=== PATIENT | female | born 1950 | race Caucasian/White ===

== ENCOUNTER → 2018-02-12 13:56 | Outpatient (CLI) | payer MEDICARE, SELFPAY ==
--- NOTE | 2018-02-27 08:06 | PM.CARDMON.1 ---
Cook Chief Report Referral & Results Date Patient Seen: 02/12/18 Requesting provider: Johanna Melendez Indication: Palpitations Duration of monitoring (days): 7 Diary information: There were 0 patient diary entries There are 9 patient triggered events associated with sinus rhythm, PACs, and SVT Data: Minimum heart rate identified was 50 beats per minute at 06:11 on 02/18/2018 Back some sinus heart rate was 151 beats per minute at 10:55 on 02/16/2018 Maximum overall heart rate was 200 beats per minute at 18:11 on 02/17/2018 during a 28 min run of SVT Less than 1% of identified beats are either ventricular or supraventricular ectopic in origin Patient had 10 runs of SVT including 1 that lasted nearly 28-,1/2 minutes Impression: This monitor seems to show episodes of SVT as a likely source of patient's sense of palpitations Clinical correlation and treatment suggested
--- NOTE | 2018-02-27 08:10 | P.HOLT.S_ITS ---
Salary And Wage Administrator Report Referral & Results Date Patient Seen: 02/12/18 Requesting provider: Johanna Melendez Indication: Palpitations Duration of monitoring (days): 7 Diary information: There were 0 patient diary entries There are 9 patient triggered events associated with sinus rhythm, PACs, and SVT Data: Minimum heart rate identified was 50 beats per minute at 06:11 on 2017 Back some sinus heart rate was 151 beats per minute at 10:55 on 02/16/2018 Maximum overall heart rate was 200 beats per minute at 18:11 on 02/17/2018 during a 28 min run of SVT Less than 1% of identified beats are either ventricular or supraventricular ectopic in origin Patient had 10 runs of SVT including 1 that lasted nearly 28-,1/2 minutes Impression: This monitor seems to show episodes of SVT as a likely source of patient's sense of palpitations Clinical correlation and treatment suggested
== END ==
PROVIDERS: Visit Provider Nurse Practitioner Family
DX: R00.2 Palpitations (principal)
CPT/HCPCS: 0296T

== ENCOUNTER → 2018-02-21 08:33 | Outpatient (CLI) | payer MEDICARE, SELFPAY ==
[2018-02-21 08:56] LABS: Bacteria Urine None Seen; RBC Urine None Seen (0-5/HPF); WBC Urine None Seen (0-5/HPF)
[2018-02-21 09:50] LABS: Appearance Urine UA CLEAR; Bilirubin Urine UA NEGATIVE (NEGATIVE); Color Urine UA YELLOW; Glucose Urine UA NEGATIVE (Normal); Ketones Urine UA NEGATIVE (NEGATIVE); Leukocyte Esterase Urine UA NEGATIVE (NEGATIVE); Nitrite Urine UA Negative (Negative); Occult Blood Urine UA NEGATIVE (Negative); Protein Urine UA NEGATIVE (Negative); Urobilinogen Urine UA 0.2 E.U./dL (0.2); pH Urine UA 6.5 (4.5-8.0)
[2018-02-21 10:01] LABS: Culture Indicated Urine Cult Not Indicated; Urine Comments Microscopic Normal
[2018-02-21 10:03] LABS: Hematocrit 37.9 % (36-46); Mean Corpuscular HGB Conc 34.3 % (30-36); Mean Corpuscular Hemoglobin 33.3 PG (26-34); Platelet Count 174 X10^3/uL (150-400); Red Blood Cell Count 3.91 X10^6/uL (4.0-5.2); Red Cell Distribution Width 12.1 % (11.6-14.8); White Blood Cell Count 3.2 X10^3/uL (4.5-11.0)
[2018-02-21 10:20] LABS: Alanine Aminotransferase 40 IU/L (9-52); Albumin Globulin Ratio 1.4 (1.0-2.8); Alkaline Phosphatase 64 U/L (38-126); Aspartate Aminotransferase 44 IU/L (14-36); Bilirubin Total 0.6 mg/dL (0.2-1.3); Blood Urea Nitrogen 20 mg/dL (7-17); Calcium 9.5 mg/dL (8.4-10.2); Carbon Dioxide 35 mmol/L (22-32); Chloride 102 mmol/L (98-107); Cholesterol 212 mg/dL (140-199); Estimated Glomerular Filt Rate 55.3 mL/min (>60); Globulin 2.8 g/dL (1.7-4.1); Glucose 88 mg/dL (80-110); HDL Cholesterol 72 mg/dL (40-60); HEMOLYSIS < 15 (0-50); LDL Cholesterol Calculated 125 mg/dL (<100); Sodium 142 mmol/L (137-145); Total Protein 6.8 g/dL (6.3-8.2); Triglycerides 73 mg/dL (35-150)
[2018-02-21 10:27] LABS: Hemoglobin A1C% w Est Avg Glu 5.2 % (4.0-6.0)
[2018-02-21 10:29] LABS: Free T4, Direct Thyroxine 1.05 ng/dL (0.78-2.19)
[2018-02-21 10:39] LABS: C-Reactive Protein Quant < 0.5 mg/dL (<1.0)
[2018-02-21 10:55] LABS: Erythrocyte Sedimentation Rate 6 MM/HR (0-20)
[2018-02-21 11:51] LABS: Neutrophils Absolute Manual 1664 /uL (3000-5900); Nucleated Red Blood Cells 1 #/Diff; Total Cells Counted 100
[2018-02-21 12:05] LABS: Anisocytosis 1+; Poikilocytosis 1+
== END ==
PROVIDERS: PCP Nurse Practitioner Family; Visit Provider Nurse Practitioner Family
DX: R52 Pain, unspecified (principal); R53.83 Other fatigue; M85.80 Other specified disorders of bone density and structure, unspecified site; Q24.9 Congenital malformation of heart, unspecified; Z00.00 Encounter for general adult medical examination without abnormal findings; Z79.899 Other long term (current) drug therapy
CPT/HCPCS: 36415; 80053; 80061; 81001; 83036; 84439; 84443; 85025; 85651; 86140

== ENCOUNTER → 2018-03-06 13:23 | Outpatient (CLI) | payer MEDICARE, SELFPAY ==
[2018-03-10 18:11] LABS: Fecal Immunochemical Test NOT DETECTED
== END ==
PROVIDERS: PCP Nurse Practitioner Family; Visit Provider Nurse Practitioner Family
DX: R52 Pain, unspecified (principal); R53.83 Other fatigue
CPT/HCPCS: 82274

== ENCOUNTER → 2018-03-21 10:02 | Outpatient (CLI) | payer MEDICARE, SELFPAY ==
[2018-03-21 10:31] LABS: Hematocrit 38.9 % (36-46); Hemoglobin 13.2 g/dL (12.0-16.0); Mean Corpuscular HGB Conc 33.9 % (30-36); Mean Corpuscular Hemoglobin 32.7 PG (26-34); Mean Corpuscular Volume 96.3 fL (80-100); Platelet Count 172 X10^3/uL (150-400); Red Blood Cell Count 4.04 X10^6/uL (4.0-5.2); Red Cell Distribution Width 11.9 % (11.6-14.8); White Blood Cell Count 4.2 X10^3/uL (4.5-11.0)
[2018-03-21 11:17] LABS: Cholesterol 140 mg/dL (140-199); HDL Cholesterol 80 mg/dL (40-60); LDL Cholesterol Calculated 46 mg/dL (<100); Triglycerides 70 mg/dL (35-150)
[2018-03-21 12:07] LABS: Neutrophils Absolute Manual 2268 /uL (3000-5900); RBC Morphology Normal Morphology; Total Cells Counted 100
== END ==
PROVIDERS: PCP Nurse Practitioner Family; Visit Provider Nurse Practitioner Family
DX: E78.5 Hyperlipidemia, unspecified (principal); M85.80 Other specified disorders of bone density and structure, unspecified site
CPT/HCPCS: 36415; 80061; 85025

== ENCOUNTER → 2018-04-01 13:28 | Outpatient (CLI) | payer MEDICARE, SELFPAY ==
--- NOTE | 2018-04-01 13:38 | DI.RAD.S_ITS ---
PROCEDURE: XR HIP W PEL IF DONE LT MIN 4V INDICATIONS: Bilateral hip pain TECHNIQUE: AP pelvis with lateral view(s) of the right and left hip(s), 3 views total. COMPARISON: None. FINDINGS: Bones: No fractures or dislocations. There is moderately severe symmetric hip joint osteoarthritis with joint space thinning Pelvic ring appears intact. No suspicious bony lesions. Suspect old fracture at the symphysis pubis on the right Soft tissues: The visualized bowel gas pattern is normal. No suspicious soft tissue calcifications. IMPRESSION: Moderately severe symmetric hip joint osteoarthritis bilaterally, old trauma to the symphysis pubis on the right. Dictated by: Alberto Gerber M.D. on 04/01/2018 at 15:26 Approved by: Alberto Gerber M.D. on 04/01/2018 at 15:27
--- NOTE | 2018-04-01 13:38 | DI.RAD.S_ITS ---
PROCEDURE: XR LUMBAR SPINE 2-3V INDICATIONS: Low back pain TECHNIQUE: 3 views of the lumbar spine were acquired. COMPARISON: [facility], , PELVIS W UNILATERAL HIP RIGHT, 01/14/2014, 12:45. [facility], , DEXA AXIAL SKELETON, 04/21/2017, 15:34. FINDINGS: Bones: 5 xtg-yde-qenlusa vertebrae are present. There is levoscoliotic bony alignment centered at L3. There is a definite L3 anterior wedge vertebral body compression fracture or fracture with 40.1% height reduction at the middle third of the vertebral body of L3 when compared to the level immediately below. No suspicious bony lesions. Soft tissues: Overlying bowel gas pattern is normal. No suspicious soft tissue calcifications. IMPRESSION: Moderate convex leftward scoliosis centered at L3, and the L3 vertebral body shows a 40.1% compression fracture at its middle third, when compared to the normal-appearing level immediately below. MR scanning could be utilized to assess chronicity of this compression fracture. By appearance it may be acute or subacute. Dictated by: Alberto Gerber M.D. on 04/01/2018 at 15:22 Approved by: Alberto Gerber M.D. on 04/01/2018 at 15:26
== END ==
PROVIDERS: PCP Nurse Practitioner Family; Visit Provider Registered Nurse
DX: M54.5 Low back pain (principal); M25.551 Pain in right hip; M25.552 Pain in left hip; M48.56XA Collapsed vertebra, not elsewhere classified, lumbar region, initial encounter for fracture; M16.0 Bilateral primary osteoarthritis of hip; M41.86 Other forms of scoliosis, lumbar region
CPT/HCPCS: 72100; 73522

== ENCOUNTER → 2018-04-07 10:36 | Outpatient (CLI) | payer MEDICARE, SELFPAY ==
--- NOTE | 2018-04-07 | DI.US.S_ITS ---
PROCEDURE: US RENAL COMPLETE INDICATIONS: CHRONIC KIDNEY DISEASE STAGE 3 TECHNIQUE: Real-time scanning was performed of the kidneys and bladder, with image documentation. COMPARISON: None. FINDINGS: Kidneys: Kidneys are normal in size. Right kidney measures 10.0 cm long; left kidney measures 10.1 cm long. Right renal cortical thickness is 1.3 cm; left renal cortical thickness is 1.7 cm. Renal cortical echotexture is normal. No hydronephrosis. 1.7 cm nonobstructing inferior pole left renal calcification. Bladder: Pre-void bladder volume is 309 mL. Post-void residual is 0 mL. Pre-void images demonstrate no intraluminal masses or stones. On pre-void images, bilateral ureteral jets are noted with color Doppler interrogation. (Of note, ureteral jets may not be detectable in up to 25% of cases due to insufficient differences in specific gravity between ureteral and bladder urine). Miscellaneous: No free pelvic fluid. IMPRESSION: 1.7 cm nonobstructing left renal calcifications otherwise normal appearance of the kidneys. Dictated by: Hadley SPARROW Interpreted: Marely Shell MD on 04/07/2018 at 13:38 Approved by: Marely Shell M.D. on 04/07/2018 at 15:37
== END ==
PROVIDERS: Visit Provider Student in an Organized Health Care Education/Training Program
DX: N18.3 Chronic kidney disease, stage 3 (moderate) (principal); N20.0 Calculus of kidney
CPT/HCPCS: 76770

== ENCOUNTER → 2018-04-13 10:12 | Outpatient (CLI) | payer MEDICARE, SELFPAY | PROVIDERS: Visit Provider Registered Nurse | DX: M85.88 Other specified disorders of bone density and structure, other site (principal); Z78.0 Asymptomatic menopausal state; Z82.62 Family history of osteoporosis; Z85.42 Personal history of malignant neoplasm of other parts of uterus; Z87.891 Personal history of nicotine dependence | CPT/HCPCS: 77080 ==

== ENCOUNTER 2018-05-05 07:27 | Day surgery (SDC) | payer MEDICARE, SELFPAY ==
[2018-05-05 07:43] VITALS: BMI 24.2
[2018-05-05 07:58] VITALS: BP 154/85; PULSE 79; RESP 15; TEMP 36.4; O2SAT 98
[2018-05-05] MEDS: SODIUM CHLORIDE 0.9% 1,000 ML 21 ML IV (08:28)
--- NOTE | 2018-05-05 09:02 | PM.HP.1 ---
History of Present Illness Date Patient Seen: 05/05/18 Time Patient Seen: 09:02 Chief complaint: [id number] Narrative: The patient is woman whose last colonoscopy was about 5-10 years ago. She thinks it is closer to 10. She is here for screening exam. She has had polyps before. This is her 3rd colonoscopy. Patient History Medical History Paroxysmal SVT (supraventricular tachycardia) (Acute) Osteopenia (Chronic) Cervical cancer (Resolved 1984) Colon polyps (Resolved 2009) DVT (deep venous thrombosis) (Resolved) Elbow fracture, right (Resolved) Fracture of left pelvis (Resolved 01/24/12) Fracture of right pubis (Resolved 01/12/14) Surgical History History of colonoscopy (Resolved 2011) History of colonoscopy with polypectomy (Resolved 2009) History of elbow surgery (Resolved) Status post hysterectomy (Resolved 1984) Family & Social History Family History: Reviewed 05/05/18 by Carlos Caba MD Social History: household members spouse Tobacco & Substance use: Smoking Status Former smoker Meds Home Medications Medication Instructions Recorded Confirmed Type CA PANTOTHENATE/FOLIC ACID/VIT 1 tab PO Q DAY #0 08/15/11 05/05/18 History (MULTIVITAMIN) [CITRICAL] 2 tab PO BID #0 01/24/12 05/05/18 History conjugated estrogens 0.3 mg tablet 0.3 mg PO QDAY #90 tab 02/03/18 05/05/18 Rx rosuvastatin 10 mg tablet 10 mg PO DAILY #30 tab 02/25/18 05/05/18 Rx alendronate 70 mg tablet 70 mg PO QWEEK #60 tab 04/06/18 05/05/18 Rx metoprolol succinate ER 25 mg 25 mg PO DAILY #30 tab 04/29/18 05/05/18 Rx tablet,extended release 24 hr Allergies Allergy/AdvReac Type Severity Reaction Status Date / Time No Known Drug Allergies Allergy Verified 05/05/18 07:40 Review of Systems Review of Systems All systems reviewed & are unremarkable except as noted in HPI and below Cardiovascular Comments: History SVT. Patient on beta-alexi which she took. Genitourinary Comments: Stress incontinence Musculoskeletal Comments: History arthritis Exam Vital Signs (past 8 hours): - 05/05/18 07:58 Temperature 97.5 F L Pulse Rate 79 Respiratory Rate 15 Blood Pressure 154/85 H Pulse Oximetry 98 Oxygen Delivery Method Room Air Narrative Exam Narrative: No apparent distress. Lungs are clear to auscultation no rales or rhonchi heart regular rate and rhythm no murmur or gallop abdomen is scaphoid soft nontender without mass. Patient is alert and oriented x3. Assessment & Plan Plan: Assessment/Plan Narrative: Patient for screening colonoscopy. Given her history of polyps she is due for 1 at this time. I have discussed the procedure and the rationale with the patient including risks of bleeding, perforation which would necessitate a major operation, failure to find remove all lesions and the potential to tattoo. They appeared to understand and wished to proceed.
--- NOTE | 2018-05-05 09:06 | PM.PREOP ---
Pre-operative Note Interval Note Pre-op Check: Yes History & Physical exam performed today by Physician Changes: No ASA Class (for procedural sedation): II
[2018-05-05] MEDS: MIDAZOLAM 5 MG/5 ML VIAL IV (09:26)
[2018-05-05] MEDS: fentaNYL 250 MCG/5 ML INJ IV (09:27)
--- NOTE | 2018-05-05 09:36 | PM.OP.ENDO ---
Operative Date/Time/Diagnoses Date of procedure: 05/05/18 Time of procedure: 09:36 Pre-op diagnosis: Screening examination. Last exam 5-10 years ago. Personal history of polyps. Post-op diagnosis: same (Occasional sigmoid diverticulosis. Otherwise normal exam.) Procedure & Clinicians Study performed: Colonoscopy Same procedure as scheduled: Yes Indications: Screening Surgeon: Carlos Caba Procedure Notes SCOAP/Timeout: Performed Procedure in detail: The patient was placed in the left lateral decubitus position and underwent IV sedation directed by the surgeon consisting of fentanyl and Versed. Digital exam was unremarkable. There were no masses. The scope was inserted and advanced through the rectum into the sigmoid, descending, transverse, and ascending colon. We did have to reposition the patient in order to make our way all the way to the cecum. The cecum was reached identified by the ileocecal valve and the appendiceal opening. The scope was gradually brought out. No Polyps were found. The scope ultimately was retroflexed in the rectum. The appearance was[normal]. The scope was removed and the patient tolerated the procedure well Scope withdrawal time: 7.5 min Sedation minutes: 27 Findings: diverticulosis (Occasional sigmoid) Specimen(s): none sent Complications: none Recommendations: Colonscopy in 5 years (Due to personal history of polyps) Follow up: as needed Disposition: PACU
[2018-05-05 09:39] VITALS: BP 135/66; PULSE 78; RESP 12; TEMP 36.3; O2SAT 96
[2018-05-05 09:44] VITALS: BP 116/67; PULSE 77; RESP 12; O2SAT 96
[2018-05-05 09:49] VITALS: BP 118/59; PULSE 88; RESP 14; O2SAT 97
[2018-05-05 10:12] VITALS: BP 129/66; PULSE 85; RESP 16; TEMP 36.6; O2SAT 97
== END 2018-05-05 10:16 | disposition home or self-care (01) ==
PROVIDERS: Visit Provider Specialist
PROC: 0DJD8ZZ Inspection of Lower Intestinal Tract, Via Natural or Artificial Opening Endoscopic (ICD-10-PCS; CPT 45378; principal; 2018-05-05 08:45)
DX: Z86.010 Personal history of colon polyps (principal); Z86.718 Personal history of other venous thrombosis and embolism; Z87.891 Personal history of nicotine dependence; K57.30 Diverticulosis of large intestine without perforation or abscess without bleeding
CPT/HCPCS: G0105; 99152; 99153; J2250; J3010

== ENCOUNTER → 2018-05-07 11:26 | Outpatient (CLI) | payer MEDICARE, SELFPAY ==
[2018-05-07 13:10] LABS: Hematocrit 37.6 % (36-46); Hemoglobin 12.9 g/dL (12.0-16.0)
[2018-05-07 13:54] LABS: HEMOLYSIS < 15 (0-50); Iron 126 ug/dL (37-170)
[2018-05-07 14:03] LABS: BUN Creatinine Ratio 27.8 (6-22); Blood Urea Nitrogen 25 mg/dL (7-17); Calcium 9.9 mg/dL (8.4-10.2); Carbon Dioxide 29 mmol/L (22-32); Chloride 100 mmol/L (98-107); Estimated Glomerular Filt Rate > 60.0 mL/min (>60); Glucose 88 mg/dL (80-110); HEMOLYSIS < 15 (0-50); Phosphorous 4.6 mg/dL (2.8-4.1); Potassium 4.6 mmol/L (3.4-5.1); Sodium 140 mmol/L (137-145)
[2018-05-07 14:04] LABS: Percent Iron Saturation 46 % (15-50); Total Iron Binding Capacity 276 ug/dL (265-497); Transferrin 233 mg/dL (206-381)
[2018-05-07 15:26] LABS: Protein (Total) Urine Random 10 mg/dL (0-12); Protein Creatinine Ratio Urine 0.25 GRAM/24H
[2018-05-09 14:37] LABS: Parathyroid Hormone Int 25 pg/mL (14-64)
== END ==
PROVIDERS: Visit Provider Student in an Organized Health Care Education/Training Program
DX: N05.9 Unspecified nephritic syndrome with unspecified morphologic changes (principal); D50.0 Iron deficiency anemia secondary to blood loss (chronic); D64.9 Anemia, unspecified; R80.9 Proteinuria, unspecified; E83.30 Disorder of phosphorus metabolism, unspecified; N25.81 Secondary hyperparathyroidism of renal origin; I10 Essential (primary) hypertension
CPT/HCPCS: 36415; 80048; 82570; 82728; 83540; 83550; 83970; 84100; 84156; 85014; 85018

== ENCOUNTER → 2018-08-28 11:54 | Outpatient (CLI) | payer MEDICARE, SELFPAY ==
[2018-08-28 12:34] LABS: Add Manual Diff / Slide Review NO; Basophils Absolute Auto 0 /uL (0-100); Basophils Percent Auto 0.5 % (0-2); Eosinophils Absolute Auto 0 /uL (0-450); Hematocrit 37.7 % (36-46); Hemoglobin 12.9 g/dL (12.0-16.0); Lymphocytes Absolute Auto 1300 /uL (1100-4500); Lymphocytes Percent Auto 27.6 % (25-40); Mean Corpuscular HGB Conc 34.2 % (30-36); Mean Corpuscular Hemoglobin 33.3 PG (26-34); Mean Corpuscular Volume 97.3 fL (80-100); Monocytes Absolute Auto 600 /uL (0-900); Monocytes Percent Auto 12.2 % (3-14); Neutrophils Absolute Auto 2800 /uL (1500-7000); Neutrophils Percent Auto 58.7 % (50-75); Platelet Count 184 X10^3/uL (150-400); Red Blood Cell Count 3.87 X10^6/uL (4.0-5.2); White Blood Cell Count 4.7 X10^3/uL (4.5-11.0)
[2018-08-28 12:43] LABS: Alanine Aminotransferase 45 IU/L (9-52); Albumin 4.2 g/dL (3.5-5.0); Albumin Globulin Ratio 1.4 (1.0-2.8); Alkaline Phosphatase 64 U/L (38-126); Aspartate Aminotransferase 42 IU/L (14-36); BUN Creatinine Ratio 21.1 (6-22); Bilirubin Total 0.5 mg/dL (0.2-1.3); Blood Urea Nitrogen 19 mg/dL (7-17); Calcium 10.1 mg/dL (8.4-10.2); Carbon Dioxide 30 mmol/L (22-32); Chloride 99 mmol/L (98-107); Estimated Glomerular Filt Rate > 60.0 mL/min (>60); Globulin 2.9 g/dL (1.7-4.1); Glucose 83 mg/dL (80-110); HEMOLYSIS < 15 (0-50); Potassium 4.1 mmol/L (3.4-5.1); Sodium 137 mmol/L (137-145); Total Protein 7.1 g/dL (6.3-8.2)
== END ==
PROVIDERS: Visit Provider Registered Nurse
DX: R19.7 Diarrhea, unspecified (principal)
CPT/HCPCS: 36415; 80053; 85025; 87045; 87177; 87899

== ENCOUNTER → 2019-04-22 16:42 | Outpatient (CLI) | payer MEDICARE, SELFPAY ==
--- NOTE | 2019-04-22 | DI.MG.S_ITS ---
BILATERAL DIGITAL SCREENING MAMMOGRAM 3D/2D WITH CAD: 04/22/2019 CLINICAL: Routine screening. Comparison is made to exams dated: 04/21/2017 mammogram, 10/27/2014 mammogram, and 09/27/2013 mammogram - [facility]. There are scattered fibroglandular elements in both breasts. Current study was also evaluated with a Computer Aided Detection (CAD) system. No significant masses, calcifications, or other findings are seen in either breast. There has been no significant interval change. IMPRESSION: NEGATIVE There is no mammographic evidence of malignancy. A 1 year screening mammogram is recommended. This exam was interpreted at Station ID: [id number]. NOTE: For mammograms, a report in lay terms will be sent to the patient. Approximately 15% of breast malignancies will not be visualized mammographically. In the management of a palpable breast mass, a negative mammogram must not discourage biopsy of a clinically suspicious lesion. Electronically Signed By: Chad luis/nallely:04/22/2019 20:32:09 letter sent: Normal Exam ACR BI-RADS Category 1: Negative 3341F
== END ==
PROVIDERS: Visit Provider Student in an Organized Health Care Education/Training Program
DX: Z12.31 Encounter for screening mammogram for malignant neoplasm of breast (principal)
CPT/HCPCS: 77063; 77067

== ENCOUNTER → 2019-05-04 07:23 | Outpatient (CLI) | payer MEDICARE, SELFPAY ==
[2019-05-04 09:06] LABS: Albumin 4.7 g/dL (3.5-5.0); BUN Creatinine Ratio 18.9 (6-22); Blood Urea Nitrogen 17 mg/dL (7-17); Carbon Dioxide 32 mmol/L (22-32); Chloride 99 mmol/L (98-107); Estimated Glomerular Filt Rate > 60.0 mL/min (>60); Glucose 90 mg/dL (80-110); HEMOLYSIS < 15 (0-50); Sodium 140 mmol/L (137-145)
[2019-05-04 09:07] LABS: Creatinine Urine Random 35.6 mg/dL; Total Volume Urine 2800 mL
[2019-05-04 09:18] LABS: Vitamin D 25 Hydroxy (D3) 57.7 ng/mL (30.0-100.0)
[2019-05-04 10:10] LABS: Calcium 24 Hour Urine 263 mg/day (100-300); Calcium Urine Random 9.4; Collection Time Urine 24 Hours; Total Volume Urine 2800 mL
[2019-05-04 10:17] LABS: Patient Height Urine 67 inches; Patient Weight Urine 142 lbs
[2019-05-04 10:20] LABS: Collection Time Urine 24 Hours; Creat Clearance, Corrected 76.4 mL/MIN; Creatinine Clearance Urine 76.9 mL/MIN
[2019-05-06 14:57] LABS: Parathyroid Hormone Int 35 pg/mL (14-64)
[2019-05-12 16:56] LABS: N-Telopeptide Serum < 3.4 nM BCE (6.2-19.0)
== END ==
PROVIDERS: Visit Provider Internal Medicine Endocrinology, Diabetes & Metabolism
DX: M81.0 Age-related osteoporosis without current pathological fracture (principal); S32.000S Wedge compression fracture of unspecified lumbar vertebra, sequela
CPT/HCPCS: 36415; 80048; 82040; 82306; 82340; 82523; 82575; 83970; 84443

== ENCOUNTER → 2019-07-26 08:59 | Outpatient (CLI) | payer MEDICARE, SELFPAY ==
[2019-07-26 10:27] LABS: Hematocrit 37.9 % (36-46); Hemoglobin 12.8 g/dL (12.0-16.0)
[2019-07-26 10:39] LABS: BUN Creatinine Ratio 15.6 (6-22); Blood Urea Nitrogen 14 mg/dL (7-17); Calcium 10.3 mg/dL (8.4-10.2); Carbon Dioxide 33 mmol/L (22-32); Chloride 96 mmol/L (98-107); Estimated Glomerular Filt Rate > 60.0 mL/min (>60); Glucose 82 mg/dL (80-110); HEMOLYSIS < 15 (0-50); Potassium 4.7 mmol/L (3.4-5.1); Sodium 136 mmol/L (137-145)
[2019-07-26 10:56] LABS: Creatinine Urine Random 36.6 mg/dL; Protein (Total) Urine Random 14 mg/dL (0-12); Protein Creatinine Ratio Urine 0.38 GRAM/24H
[2019-07-26 10:57] LABS: HEMOLYSIS < 15 (0-50); Iron 101 ug/dL (37-170)
[2019-07-26 11:00] LABS: Ferritin 64.8 ng/mL (11.1-264)
[2019-07-26 11:07] LABS: Percent Iron Saturation 35 % (15-50); Total Iron Binding Capacity 289 ug/dL (265-497); Transferrin 237 mg/dL (206-381)
[2019-07-29 15:22] LABS: Parathyroid Hormone Int 13 pg/mL (14-64)
== END ==
PROVIDERS: PCP Student in an Organized Health Care Education/Training Program; Visit Provider Student in an Organized Health Care Education/Training Program
DX: D84.9 Immunodeficiency, unspecified (principal); D50.0 Iron deficiency anemia secondary to blood loss (chronic); N25.81 Secondary hyperparathyroidism of renal origin; R80.9 Proteinuria, unspecified
CPT/HCPCS: 36415; 80048; 82570; 82728; 83540; 83550; 83970; 84156; 85014; 85018

== ENCOUNTER → 2019-09-02 19:02 | Outpatient (CLI) | payer MEDICARE, SELFPAY ==
--- NOTE | 2019-09-02 19:04 | DI.MRI.S_ITS ---
PROCEDURE: MR KNEE RT WO CON INDICATIONS: INTERNAL DERAIGNMENT OF RIGHT KNEE TECHNIQUE: Noncontrast sagittal PD fast spin echo and T2 fast spin echo with fat saturation, sagittal 3-D FLASH with fat saturation; coronal T1 spin echo and PD fast spin echo with fat saturation, and axial PD fast spin echo with fat saturation through the knee. COMPARISON: None. FINDINGS: Image quality: Excellent. Menisci: There is peripheral displacement of medial meniscus bowing medial collateral ligament. Complex tear is seen involving body and posterior horn of medial meniscus extending to both superior and inferior articulating surfaces. There is no evidence of focal lateral meniscal tear. The meniscal root ligaments appear intact. Cruciate ligaments: The anterior and posterior cruciate ligaments appear intact. Medial structures: The medial collateral ligament appears intact. The posterior oblique ligament, semimembranosus tendon insertions, oblique popliteal ligament, and meniscocapsular junction appear intact. Visualized portions of the pes anserinus tendons appear normal. No abnormal bursal fluid. Lateral structures: The lateral collateral ligament, long and short heads of the biceps femoris tendon appear intact. The popliteus tendon appears normal; the popliteofibular ligament appears intact. The posterosuperior and anteroinferior popliteomeniscal fascicles appear intact. The arcuate and fabellofibular ligaments appear intact, on either side of the lateral inferior geniculate artery. Iliotibial band appears normal. Anterior structures: The quadriceps and patellar tendons appear intact. Patellar alignment is normal. No femoral trochlear dysplasia or ventral trochlear prominence. No edema in the infrapatellar fat pad. Bones and cartilage: There is significant chondromalacia involving medial femoral tibial compartment with marrow edema in the adjacent weightbearing portion of medial femoral condyle and suggestion of osteochondral lesion in medial femoral condyle measures 5 x 3 mm in size. Mild chondromalacia in the lateral femoral-tibial compartment is seen. Low-grade chondromalacia in lateral facet of patella cartilage is also noted. No other area of abnormal marrow signal. Joint space: There is moderate amount of joint fluid. 3.2 x 2 x 5.1 cm popliteal cyst is seen. Normal appearing synovial plicae are incidentally noted. IMPRESSION: 1. Complex tear involving body and posterior horn of medial meniscus extending to both superior and inferior articulating surfaces. No evidence of focal lateral meniscal tear. 2. Cruciate ligaments are intact. 3. Moderate osteoarthritic changes in medial femoral-tibial compartment with near-complete loss of articulating cartilage and underlying 5 x 3 mm osteochondral lesion with extensive surrounding edema. 4. Moderate amount of joint fluid and popliteal cyst as above. No gross intra-articular loose body. Dictated by: Dwayne Benton M.D. on 09/03/2019 at 8:49 Approved by: Dwayne Benton M.D. on 09/03/2019 at 8:55
--- NOTE | 2019-09-02 19:04 | DI.MRI.S_ITS ---
PROCEDURE: MR KNEE LT WO CON INDICATIONS: INTERNAL DERAINGMENT OF LEFT KNEE TECHNIQUE: Noncontrast sagittal PD fast spin echo and T2 fast spin echo with fat saturation, sagittal 3-D FLASH with fat saturation; coronal T1 spin echo and PD fast spin echo with fat saturation, and axial PD fast spin echo with fat saturation through the knee. COMPARISON: [facility], MR, MR KNEE RT WO CON, 09/02/2019, 19:36. FINDINGS: Image quality: Excellent. Menisci: Oblique tear involving posterior horn of medial meniscus is seen extending to inferior articulating surface. There is a no definite lateral meniscal tear. The meniscal root ligaments appear intact. Cruciate ligaments: The anterior and posterior cruciate ligaments appear intact. Medial structures: Mild MCL sprain is seen.. The posterior oblique ligament, semimembranosus tendon insertions, oblique popliteal ligament, and meniscocapsular junction appear intact. Visualized portions of the pes anserinus tendons appear normal. No abnormal bursal fluid. Lateral structures: The lateral collateral ligament, long and short heads of the biceps femoris tendon appear intact. The popliteus tendon appears normal; the popliteofibular ligament appears intact. The posterosuperior and anteroinferior popliteomeniscal fascicles appear intact. The arcuate and fabellofibular ligaments appear intact, on either side of the lateral inferior geniculate artery. Iliotibial band appears normal. Anterior structures: The quadriceps and patellar tendons appear intact. Patellar alignment is normal. No femoral trochlear dysplasia or ventral trochlear prominence. No edema in the infrapatellar fat pad. Bones and cartilage: No bone marrow contusions or fractures. Low to moderate grade osteoarthritis and chondromalacia in medial femoral tibial compartment is seen. Articulating cartilage is a lateral femoral tibial compartment and patellofemoral compartment are grossly intact. Joint space: There is small to moderate amount of joint fluid, no gross intra-articular loose body. There is a small popliteal cyst. Normal appearing synovial plicae are incidentally noted. IMPRESSION: 1. Oblique tear involving posterior horn of medial meniscus extending to inferior articulating surface. No definite lateral meniscal tear. 2. Cruciate ligaments are intact. Mild proximal MCL sprain. 3. Mild to moderate osteoarthritis and chondromalacia in medial femoral tibial compartment. Small to moderate amount of joint fluid, no gross loose body. Small popliteal cyst. Dictated by: Dwayne Benton M.D. on 09/03/2019 at 8:56 Approved by: Dwayne Benton M.D. on 09/03/2019 at 9:13
== END ==
PROVIDERS: PCP Student in an Organized Health Care Education/Training Program; Referring Provider Orthopaedic Surgery; Visit Provider Orthopaedic Surgery
DX: S83.231A Complex tear of medial meniscus, current injury, right knee, initial encounter (principal); S83.242A Other tear of medial meniscus, current injury, left knee, initial encounter; S83.412A Sprain of medial collateral ligament of left knee, initial encounter; M71.22 Synovial cyst of popliteal space [Baker], left knee; M71.21 Synovial cyst of popliteal space [Baker], right knee; M17.12 Unilateral primary osteoarthritis, left knee; M94.262 Chondromalacia, left knee; M22.41 Chondromalacia patellae, right knee
CPT/HCPCS: 73721

== ENCOUNTER → 2019-10-28 14:49 | Outpatient (CLI) | payer MEDICARE, SELFPAY ==
[2019-10-28 15:37] LABS: Add Manual Diff / Slide Review NO; Basophils Absolute Auto 0 /uL (0-100); Basophils Percent Auto 0.5 % (0-2); Eosinophils Absolute Auto 0 /uL (0-450); Eosinophils Percent Auto 0.5 % (2-4); Hematocrit 36.8 % (36-46); Hemoglobin 12.4 g/dL (12.0-16.0); Lymphocytes Absolute Auto 800 /uL (1100-4500); Lymphocytes Percent Auto 10.1 % (25-40); Mean Corpuscular HGB Conc 33.6 % (30-36); Mean Corpuscular Volume 92.2 fL (80-100); Monocytes Absolute Auto 900 /uL (0-900); Monocytes Percent Auto 10.9 % (3-14); Neutrophils Absolute Auto 6400 /uL (1500-7000); Platelet Count 634 X10^3/uL (150-400); Red Cell Distribution Width 12.2 % (11.6-14.8); White Blood Cell Count 8.2 X10^3/uL (4.5-11.0)
[2019-10-28 15:47] LABS: INR 1.2 (0.9-1.3); Prothrombin Time 13.3 SECONDS (10.1-12.7)
[2019-10-28 15:52] LABS: Alanine Aminotransferase 25 IU/L (<35); Albumin 3.4 g/dL (3.5-5.0); Alkaline Phosphatase 136 U/L (38-126); Aspartate Aminotransferase 40 IU/L (14-36); BUN Creatinine Ratio 12.5 (6-22); Bilirubin Total 0.5 mg/dL (0.2-1.3); Blood Urea Nitrogen 8 mg/dL (7-17); Calcium 8.2 mg/dL (8.4-10.2); Carbon Dioxide 27 mmol/L (22-32); Chloride 90 mmol/L (98-107); Estimated Glomerular Filt Rate > 60.0 mL/min (>60); Globulin 3.3 g/dL (1.7-4.1); Glucose 107 mg/dL (80-110); HEMOLYSIS < 15 (0-50); Potassium 3.4 mmol/L (3.4-5.1); Sodium 130 mmol/L (137-145); Total Protein 6.7 g/dL (6.3-8.2)
[2019-10-28 16:22] LABS: Cancer Antigen 125 623 U/mL (0-35)
[2019-10-29 05:36] LABS: Cancer (Carbohydrate) Ag 19-9 5 U/mL (0-35)
== END ==
PROVIDERS: PCP Student in an Organized Health Care Education/Training Program; Referring Provider Physician Assistant; Visit Provider Physician Assistant
DX: K66.8 Other specified disorders of peritoneum (principal); R18.8 Other ascites; R97.8 Other abnormal tumor markers
CPT/HCPCS: 36415; 80053; 85025; 85610; 86301; 86304

== ENCOUNTER → 2021-03-22 13:38 | Outpatient (CLI) | payer MEDICARE, SELFPAY ==
--- NOTE | 2021-03-22 | DI.MG.S_ITS ---
BILATERAL DIGITAL SCREENING MAMMOGRAM 3D/2D WITH CAD: 03/22/2021 CLINICAL: Routine screening. Comparison is made to exams dated: 04/22/2019 mammogram, 04/21/2017 mammogram, and 10/27/2014 mammogram - [facility]. There are scattered fibroglandular elements in both breasts. Current study was also evaluated with a Computer Aided Detection (CAD) system. No significant masses, calcifications, or other findings are seen in either breast. There has been no significant interval change. IMPRESSION: NEGATIVE There is no mammographic evidence of malignancy. A 1 year screening mammogram is recommended. This exam was interpreted at Station ID: [id number]. NOTE: For mammograms, a report in lay terms will be sent to the patient. Approximately 15% of breast malignancies will not be visualized mammographically. In the management of a palpable breast mass, a negative mammogram must not discourage biopsy of a clinically suspicious lesion. Electronically Signed By: Faraz Guthrie M.D. at/nallely:03/22/2021 16:39:22 letter sent: Normal Exam ACR BI-RADS Category 1: Negative 3341F
== END ==
PROVIDERS: PCP Student in an Organized Health Care Education/Training Program; Referring Provider Student in an Organized Health Care Education/Training Program; Visit Provider Student in an Organized Health Care Education/Training Program
DX: Z12.31 Encounter for screening mammogram for malignant neoplasm of breast (principal)
CPT/HCPCS: 77063; 77067

== ENCOUNTER → 2022-07-22 16:29 | Outpatient (CLI) | payer MEDICARE, SELFPAY ==
--- NOTE | 2022-07-22 16:31 | DI.MG.S_ITS ---
BILATERAL DIGITAL SCREENING MAMMOGRAM 3D/2D WITH CAD: 07/22/2022 CLINICAL: Routine screening. Comparison is made to exams dated: 03/22/2021 mammogram, 04/22/2019 mammogram, and 04/21/2017 mammogram - [facility]. There are scattered areas of fibroglandular density in both breasts (category b / 25%-50% glandular tissue). Current study was also evaluated with a Computer Aided Detection (CAD) system. No significant masses, calcifications, or other findings are seen in either breast. There has been no significant interval change. IMPRESSION: NEGATIVE There is no mammographic evidence of malignancy. A 1 year screening mammogram is recommended. Based on the Tyrer Cuzick model (a risk assessment model) the patient's lifetime risk is 2.5% and her 10 year risk is 1.7%. According to the ACR, ACS, and NCCN guidelines, an annual breast MRI exam along with mammogram is recommended if the patient's lifetime risk is 20% or greater. This exam was interpreted at Station ID: [id number]. NOTE: For mammograms, a report in lay terms will be sent to the patient. Approximately 15% of breast malignancies will not be visualized mammographically. In the management of a palpable breast mass, a negative mammogram must not discourage biopsy of a clinically suspicious lesion. Electronically Signed By: Faraz bruno/nallely:07/23/2022 07:58:28 letter sent: Normal Exam ACR BI-RADS Category 1: Negative 3341F
== END ==
PROVIDERS: PCP Student in an Organized Health Care Education/Training Program; Referring Provider Student in an Organized Health Care Education/Training Program; Visit Provider Student in an Organized Health Care Education/Training Program
DX: Z12.31 Encounter for screening mammogram for malignant neoplasm of breast (principal)
CPT/HCPCS: 77063; 77067

== ENCOUNTER 2022-09-23 13:58 | Observation (INO) | payer MEDICARE, SELFPAY ==
[2022-09-23] VITALS (15 sets, daily range): BP systolic 153–193; BP diastolic 77–95; PULSE 67–95; RESP 16–28; TEMP 36.1–37.1; O2SAT 97–100; BMI 21.1
--- NOTE | 2022-09-23 14:07 | DI.CT.S_ITS ---
PROCEDURE: CT STROKE INDICATIONS: aphasia, resolved, gait change still present TECHNIQUE: Noncontrast 4.5 mm thick angled axial sections acquired from the foramen magnum to the vertex, with coronal reformats. For radiation dose reduction, the following was used: automated exposure control, adjustment of mA and/or kV according to patient size. COMPARISON: None. FINDINGS: Image quality: Excellent. CSF spaces: Basal cisterns are patent. No extra-axial fluid collections. Ventricles are normal in size and shape. Brain: No midline shift. No intracranial masses or hemorrhage. Negrete-white matter interface is normal. Skull and face: Calvarium and visualized facial bones are intact, without suspicious lesions. Sinuses: Visualized sinuses and mastoids are clear. IMPRESSION: No acute intracranial abnormality. Findings were discussed with the emergency department at 14:18 This study fulfills neurological imaging criteria for inclusion or exclusion of acute stroke therapies based on available published neurological imaging guidelines. Dictated by: Anish Jennings M.D. on 09/23/2022 at 14:17 Approved by: Anish Jennings M.D. on 09/23/2022 at 14:19
--- NOTE | 2022-09-23 14:08 | DI.CT.S_ITS ---
PROCEDURE: CT ANGIO HEAD AND NECK INDICATIONS: aphasia, resolved, gait change still present TECHNIQUE: Noncontrast images were performed earlier in the day and not repeated. After the administration of intravenous contrast, 1 mm thick sections acquired from the aortic arch through the [place]. Post-contrast 4.5 mm thick sections then re-acquired from the foramen magnum to the vertex. 3-dimensional knfmppc-xvjmvpvms-iumokvwsfy (MIP) and/or volume rendering reformats were acquired of the central intracranial vasculature and neck separately. For radiation dose reduction, the following was used: automated exposure control, adjustment of mA and/or kV according to patient size. COMPARISON: [facility], CT, CT STROKE, 09/23/2022, 14:10. FINDINGS: Image quality: This examination is limited by involuntary motion artifact. BRAIN: CSF spaces: Ventricles are normal in size and shape. Basal cisterns are patent. No extra-axial fluid collections. Brain: No midline shift. No intracranial bleeds or masses. Negrete-white matter interface appears intact. Skull and face: Calvarium and facial bones appear intact, without suspicious lesions. Orbits appear normal. Sinuses: Sinuses and mastoids are clear. HEAD CT ANGIOGRAPHY: Anterior circulation: Intracranial internal carotid arteries are normal in size and flow. The flow within the paired anterior cerebral arteries is normal and symmetric. The flow within the middle cerebral arteries is normal and symmetric. The anterior communicating artery is seen. No aneurysms are seen. Posterior circulation: Visualized portions of the vertebral arteries demonstrate normal caliber, and join to form a normal appearing basilar artery. Flow within the posterior cerebral arteries is normal and symmetric. No aneurysms are seen. NECK CT ANGIOGRAPHY: Carotid system: The great vessels demonstrate a conventional anatomy as they arise from the aortic arch. The origins of the common carotid arteries appear patent. The common carotid arteries demonstrate normal caliber and courses. The bifurcation regions are both widely patent. The internal carotid arteries demonstrate normal calibers and courses. Posterior circulation: The origins of the vertebral arteries both appear widely patent. The more superior extracranial portions of both vertebral arteries also demonstrate normal courses and calibers. They join to form a normal appearing basilar artery. Soft tissues: Visualized neck soft tissues demonstrate no suspicious abnormalities. A left-sided chest port is partially seen. Bones: No suspicious bony lesions. Visualized cervical spine appears normally aligned. Vimy-ot-jrnckirj cervical spine degenerative change is seen. IMPRESSION: No significant intracranial arterial abnormality is seen. Within the arteries of the neck, no hemodynamically significant stenosis can be seen. If there is strong clinical suspicion for an acute stroke, please consider a brain MRI for further evaluation, as it is more sensitive (assuming that there is no contraindication to MRI). Additional findings: Fnlg-ms-qckokibs cervical spine degenerative change Left-sided chest port Any quantitative measurements of stenosis were performed using NASCET criteria. Dictated by: Sanket Hernandez M.D. on 09/23/2022 at 13:47 Approved by: Sanket Hernandez M.D. on 09/23/2022 at 13:50
--- NOTE | 2022-09-23 14:08 | ED.NEUROSD ---
HPI - Neuro Symptoms/Deficit General Chief Complaint: Neuro Symptoms/Deficit Stated Complaint: thinks she had a stroke Time Seen by Provider: 09/23/22 14:07 Source: patient, RN notes reviewed and old records reviewed Mode of arrival: Family Vehicle Limitations: no limitations History of Present Illness HPI Narrative: This is a 71-year-old female with known ovarian cancer currently on Avastin, lisinopril with history of thrombocytopenia. Patient presents today with a 15-20 minute episode of aphasia where she could not talk at all she states this has resolved. She notes she feels a little bit off still, nursing noted she seemed to be little balance, she does not appreciate any weakness. She states little bit of a mild headache today. No chest pain, no shortness of breath, no vision changes. She denies nausea or vomiting. She denies any other GI or urinary symptoms. She does not appreciate any weakness numbing or tingling of her extremities. No facial droop was appreciated. She does have a history of hypertension, dyslipidemia ovarian cancer. Patient states she is completed her chemo she did have debulking surgery in the past she has a port in place. She denies tobacco, alcohol or illicit. She states she does have an allergy to medication but does not recall what it is. Her primary care is Dr. Dickinson although she states has not seen him in quite some time, she follows with Dr. King for her oncology team. Related Data Home Medications Medication Instructions Recorded Confirmed bevacizumab 25 mg/mL intravenous 25 mg IV Q3W 09/23/22 09/23/22 solution (Avastin) lisinopril 10 mg tablet 10 mg PO DAILY 09/23/22 09/23/22 meloxicam 7.5 mg tablet 7.5 mg PO DAILY 09/23/22 09/23/22 Allergies Allergy/AdvReac Type Severity Reaction Status Date / Time No Known Drug Allergies Allergy Verified 09/23/22 14:13 Review of Systems Review of Systems ROS Unobtainable: All systems reviewed & are unremarkable except as noted in HPI and below Patient History Medical History Abdominal bloating Cervical cancer (1984) Change in bowel habit Chronic renal failure, stage 2 (mild) Current use of estrogen therapy Diarrhea DVT (deep venous thrombosis) Elbow fracture, right Essential hypertension Fracture of left pelvis (01/24/12) Fracture of right pubis (01/12/14) Osteoporosis, unspecified (08/15/11) Paroxysmal SVT (supraventricular tachycardia) Partial rectal prolapse Polyp of colon (09/25/09) Surgical History History of colonoscopy (2011) History of colonoscopy with polypectomy (2009) History of elbow surgery Status post hysterectomy (1984) Family History Brother CAD (coronary artery disease) Hx of CABG Brother NV (myocardial infarction) Stroke Brother NV (myocardial infarction) Hx of CABG Father CAD (coronary artery disease) NV (myocardial infarction) Mother Osteoporosis Smoker Pancreatic cancer Stroke CAD (coronary artery disease) Social History household members: spouse Smoking Status: Former smoker alcohol intake: never substance use type: does not use Smoking Status: Former smoker Exam Narrative Exam Narrative: GEN: well nourished, well appearing female, alert and oriented x 3, patient appears to be in mild distress. HEENT: Atraumatic, pupils are equal round reactive to light, extraocular movements are intact, nares are clear, TMs are clear with no fluid, there is no conjunctival pallor. Throat is clear without any exudates, erythema, tonsillar enlargement or uvular deviation, no facial droop. HEART: Regular rate and rhythm without murmur, clicks, rubs. Pulses are equal in upper and lower extremities. Patient has a port in the left upper chest. LUNGS:Lungs clear to auscultation, no wheezes, rales, crackles, chest moves symmetrically ABD:bowel sounds normal, soft, non-tender, no guarding, rebound, rigidity, no masses noted, no hepatosplenomegaly :No CVA tenderness MSCL: Non-tender, no muscle atrophy, muscles strength 5/5 upper and lower extremities, full range of motion, normal gait NEURO:CN 2-12 intact, sensation normal, finger nose finger test normal, heel wooten test normal. SKIN: No rash, erythema or other skin changes Initial Vital Signs Initial Vital Signs: Vital Signs Pulse Rate 95 H 09/23/22 14:00 Respiratory Rate 20 09/23/22 14:00 Blood Pressure 193/95 H 09/23/22 14:00 Pulse Oximetry 98 09/23/22 14:00 Oxygen Delivery Method Room Air 09/23/22 14:00 Scores NIH Stroke Scale Level of Conciousness: Alert, keenly responsive Ask month/age: Answers both questions correctly. Open/close eyes, close hand: Performs both tasks correctly Best gaze horizontal: Normal Visual fisher: No visual loss Facial palsy: Normal symetrical movement Left arm drift: No drift for full 10 sec Right arm drift: No drift for full 10 sec Left leg drift: No drift for full 5 sec Right leg drift: No drift for full 5 sec Limb ataxia: Absent Sensory on face/arms/legs: Normal, no sensory loss Best language: No aphasia, normal Dysarthria: Normal Extinction or inattention: No abnormality Total NIH Stroke scale score: 0 Course Orders Ordered: ED Orders 09/23/22 14:00 Complete Blood Count AUTO DIFF Stat Comprehensive Metabolic Panel Stat Ethanol (ETOH) Stat PTT Partial Thromboplastin Zaid Stat Prothrombin Time INR Stat Troponin & CK Cardiac Panel Stat 09/23/22 14:07 CT Stroke Stat EKG-12 Lead Stat 09/23/22 14:08 CT angio head and neck Stat 09/23/22 14:31 COVID19 -Nasal RAPID Stat 09/23/22 14:44 Urine Drug Screen, Rapid Stat Urine Microscopic Stat 09/23/22 15:54 MR head/brain wo con Stat Sodium Chloride (Normal Saline 0.9%) 1,000 mls @ 150 mls/hr IV CONT HAIDER Last Admin: 09/23/22 14:54 Dose: Not Given Documented By: KATHY Discontinued Medications Aspirin (Aspirin 81 Mg Chew Tab) 324 mg PO NOW ONE Stop: 09/23/22 14:54 Last Admin: 09/23/22 14:58 Dose: 324 mg Documented By: KATHY Vital Signs Vital signs: Vital Signs - 8 hr 09/23/22 14:00 09/23/22 14:06 09/23/22 14:06 Pulse Rate 95 H 95 H Respiratory Rate 20 22 Blood Pressure 193/95 H 193/95 H Pulse Oximetry 98 98 Oxygen Delivery Method Room Air 09/23/22 14:18 09/23/22 14:18 09/23/22 14:22 Pulse Rate 87 80 Respiratory Rate 24 Blood Pressure 177/81 H Pulse Oximetry 99 98 Oxygen Delivery Method 09/23/22 14:22 09/23/22 14:25 09/23/22 14:25 Pulse Rate 77 Respiratory Rate 16 Blood Pressure 181/80 H 177/81 H Pulse Oximetry 99 Oxygen Delivery Method 09/23/22 14:30 09/23/22 14:30 09/23/22 14:42 Pulse Rate 80 82 Respiratory Rate 25 H 20 Blood Pressure 172/83 H Pulse Oximetry 98 98 Oxygen Delivery Method 09/23/22 14:42 09/23/22 15:00 09/23/22 15:01 Pulse Rate 73 78 Respiratory Rate 25 H 28 H Blood Pressure 164/77 H Pulse Oximetry 99 99 Oxygen Delivery Method 09/23/22 15:01 09/23/22 15:30 09/23/22 15:31 Pulse Rate 68 69 Respiratory Rate 17 17 Blood Pressure 191/88 H Pulse Oximetry 97 97 Oxygen Delivery Method 09/23/22 15:31 Pulse Rate Respiratory Rate Blood Pressure 176/82 H Pulse Oximetry Oxygen Delivery Method MDM - Neuro Symptoms/Deficit Lab Data 09/23/22 14:00 09/23/22 14:00 Labs: Lab Results 09/23/22 09/23/22 09/23/22 Range/Units 14:00 14:00 14:00 WBC 5.5 (4.5-11.0) X10^3/uL RBC 3.60 L (4.0-5.2) X10^6/uL Hgb 12.3 (12.0-16.0) g/dL Hct 36.1 (36-46) % MCV 100.3 H (80-100) fL MCH 34.3 H (26-34) PG MCHC 34.2 (30-36) % RDW 12.3 (11.6-14.8) % Plt Count 164 (150-400) X10^3/uL Neut % (Auto) 58.9 (50-75) % Lymph % (Auto) 28.2 (25-40) % [place] % (Auto) 10.3 (3-14) % Eos % (Auto) 2.3 (2-4) % Baso % (Auto) 0.3 (0-2) % Neut # (Auto) 3200 (0339-3039) /uL Lymph # (Auto) 1500 (2257-4080) /uL [place] # (Auto) 600 (0-900) /uL Eos # (Auto) 100 (0-450) /uL Baso # (Auto) 0 (0-100) /uL PT 11.4 (10.1-12.7) SECONDS INR 1.0 (0.9-1.3) APTT 34 (26-36) SECONDS Sodium 129 L (137-145) mmol/L Potassium 4.7 (3.4-5.1) mmol/L Chloride 94 L (98-107) mmol/L Carbon Dioxide 27 (22-32) mmol/L BUN 24 H (7-17) mg/dL Creatinine 0.79 (0.52-1.04) mg/dL Estimated GFR > 60 (>60) mL/min BUN/Creatinine Ratio 30.4 H (6-22) Glucose 108 (80-110) mg/dL Calcium 9.2 (8.4-10.2) mg/dL Total Bilirubin 0.5 (0.2-1.3) mg/dL AST 43 H (14-36) IU/L ALT 33 (<35) IU/L Alkaline Phosphatase 92 (38-126) U/L Total Creatine Kinase 179 H (30-135) U/L CK-MB (CK-2) 3.75 H (<2.37) ng/mL CK-MB (CK-2) Rel Index 2.1 (1.5-5.0) % Troponin I < 0.012 (0.01-0.034) ng/mL Total Protein 7.3 (6.3-8.2) g/dL Albumin 4.2 (3.5-5.0) g/dL Globulin 3.1 (1.7-4.1) g/dL Albumin/Globulin Ratio 1.4 (1.0-2.8) Urine RBC (0-5/HPF) Urine WBC (0-5/HPF) Ur Squamous Epith Cells (0-5/HPF) Urine Bacteria (None) Ur Culture Indicated? U Opiates 300ng/mL cut (Negative) Ur Oxycodone Screen (Negative) Urine Methadone Screen (Negative) Ur Barbiturates Screen (Negative) U Tricyclic Antidepress (Negative) Ur Phencyclidine Scrn (Negative) Ur Amphetamines Screen (Negative) U Methamphetamines Scrn (Negative) Ur MDMA Scrn (Ecstasy) (Negative) U Benzodiazepines Scrn (Negative) Urine Cocaine Screen (Negative) U Marijuana (THC) Screen (Negative) Ethyl Alcohol < 10 ( - 10) mg/dL SARS-CoV-2 (PCR) (Negative) 09/23/22 09/23/22 09/23/22 Range/Units 14:31 14:44 14:44 WBC (4.5-11.0) X10^3/uL RBC (4.0-5.2) X10^6/uL Hgb (12.0-16.0) g/dL Hct (36-46) % MCV (80-100) fL MCH (26-34) PG MCHC (30-36) % RDW (11.6-14.8) % Plt Count (150-400) X10^3/uL Neut % (Auto) (50-75) % Lymph % (Auto) (25-40) % [place] % (Auto) (3-14) % Eos % (Auto) (2-4) % Baso % (Auto) (0-2) % Neut # (Auto) (9608-6961) /uL Lymph # (Auto) (6735-8662) /uL [place] # (Auto) (0-900) /uL Eos # (Auto) (0-450) /uL Baso # (Auto) (0-100) /uL PT (10.1-12.7) SECONDS INR (0.9-1.3) APTT (26-36) SECONDS Sodium (137-145) mmol/L Potassium (3.4-5.1) mmol/L Chloride (98-107) mmol/L Carbon Dioxide (22-32) mmol/L BUN (7-17) mg/dL Creatinine (0.52-1.04) mg/dL Estimated GFR (>60) mL/min BUN/Creatinine Ratio (6-22) Glucose (80-110) mg/dL Calcium (8.4-10.2) mg/dL Total Bilirubin (0.2-1.3) mg/dL AST (14-36) IU/L ALT (<35) IU/L Alkaline Phosphatase (38-126) U/L Total Creatine Kinase (30-135) U/L CK-MB (CK-2) (<2.37) ng/mL CK-MB (CK-2) Rel Index (1.5-5.0) % Troponin I (0.01-0.034) ng/mL Total Protein (6.3-8.2) g/dL Albumin (3.5-5.0) g/dL Globulin (1.7-4.1) g/dL Albumin/Globulin Ratio (1.0-2.8) Urine RBC None seen (0-5/HPF) Urine WBC None seen (0-5/HPF) Ur Squamous Epith Cells 0-1 /hpf (0-5/HPF) Urine Bacteria None seen (None) Ur Culture Indicated? Cult not indicated U Opiates 300ng/mL cut Negative (Negative) Ur Oxycodone Screen Negative (Negative) Urine Methadone Screen Negative (Negative) Ur Barbiturates Screen Negative (Negative) U Tricyclic Antidepress Negative (Negative) Ur Phencyclidine Scrn Negative (Negative) Ur Amphetamines Screen Negative (Negative) U Methamphetamines Scrn Negative (Negative) Ur MDMA Scrn (Ecstasy) Negative (Negative) U Benzodiazepines Scrn Negative (Negative) Urine Cocaine Screen Negative (Negative) U Marijuana (THC) Screen Negative (Negative) Ethyl Alcohol ( - 10) mg/dL SARS-CoV-2 (PCR) Negative (Negative) Urine Dip Bedside Urine Glucose Negative Bedside Urine Bilirubin - Negative Bedside Urine Ketone - Negative Urine Specific [place] 1.015 Bedside Urine Occult Blood - Negative Bedside Urine pH 6.0 Bedside Urine Protein +/- 15 Bedside Urine Urobilinogen - Negative Bedside Urine Nitrite - Negative Bedside Urine Leukocytes - Negative Esterase Imaging Data CTA - brain/neck: Radiologist's Impression: Reji Martinez??71??F??1950 ? Allergy/Adv: No Known Drug Allergies Close Head/Neck CTA (Signed) Sanket Hernandez - 09/23/[address] (Signed) Anish Jennings - 09/23/22 Mammogram Screening (Signed) Faraz Guthrie - 07/22/22 Mammogram Screening (Signed) Faraz Guthrie - 03/22/21 DI Result CC 01/14/20 Knee MRI (Signed) Dwayne Benton - 09/02/19 Knee MRI (Signed) Dwayne Benton - 09/02/19 Mammogram Screening (Signed) Chad Conti - 04/22/19 Telemetry Strips 05/05/18 DEXA Result 04/13/18 Renal Ultrasound (Signed) SulemanMarely - 04/07/18 Lumbar Spine X-Ray (Signed) Alberto Gerber - 04/01/18 Hip X-Ray (Signed) Alberto Gerber - 04/01/18 Launch?Image [address] [address] [address] Scan Report Signed Patient: Reji Martinez MR#: [id number] : 1950 Acct:[id number] Age/Sex: 71 / F Date of Service: 09/23/22 Loc: ED Accession Number: [id number] ?? Procedure: CT angio head and neck Ordering Provider: Vy Lowe D.O. PROCEDURE:? CT ANGIO HEAD AND NECK ? INDICATIONS:? aphasia, resolved, gait change still present ? TECHNIQUE:? Noncontrast images were performed earlier in the day and not repeated.? ? After the administration of intravenous contrast, 1 mm thick sections acquired from the aortic arch through the [place] of [place].? Post-contrast 4.5 mm thick sections then re-acquired from the foramen magnum to the vertex.? 3-dimensional qtsntbw-yiqfbpbaw-gipzywsuii (MIP) and/or volume rendering reformats were acquired of the central intracranial vasculature and neck separately. For radiation dose reduction, the following was used:? automated exposure control, adjustment of mA and/or kV according to patient size.? ? COMPARISON:? [facility], CT, CT STROKE, 09/23/2022, 14:10. ? FINDINGS:? Image quality:? This examination is limited by involuntary motion artifact.? ? BRAIN:? CSF spaces:? Ventricles are normal in size and shape.? Basal cisterns are patent.? No extra-axial fluid collections.? ? Brain:? No midline shift.? No intracranial bleeds or masses.? Negrete-white matter interface appears intact.? ? Skull and face:? Calvarium and facial bones appear intact, without suspicious lesions.? Orbits appear normal.? ? Sinuses:? Sinuses and mastoids are clear.? ? HEAD CT ANGIOGRAPHY:? Anterior circulation:? Intracranial internal carotid arteries are normal in size and flow.? The flow within the paired anterior cerebral arteries is normal and symmetric.? The flow within the middle cerebral arteries is normal and symmetric.? The anterior communicating artery is seen.? No aneurysms are seen.? ? Posterior circulation:? Visualized portions of the vertebral arteries demonstrate normal caliber, and join to form a normal appearing basilar artery.? Flow within the posterior cerebral arteries is normal and symmetric.? No aneurysms are seen.? ? NECK CT ANGIOGRAPHY:? Carotid system:? The great vessels demonstrate a conventional anatomy as they arise from the aortic arch.? The origins of the common carotid arteries appear patent.? The common carotid arteries demonstrate normal caliber and courses.? The bifurcation regions are both widely patent.? The internal carotid arteries demonstrate normal calibers and courses.? ? Posterior circulation:? The origins of the vertebral arteries both appear widely patent.? The more superior extracranial portions of both vertebral arteries also demonstrate normal courses and calibers.? They join to form a normal appearing basilar artery.? ? Soft tissues:? Visualized neck soft tissues demonstrate no suspicious abnormalities.? A left-sided chest port is partially seen. ? Bones:? No suspicious bony lesions.? Visualized cervical spine appears normally aligned.? Eeal-bq-nuuakxas cervical spine degenerative change is seen. ? ? IMPRESSION:? No significant intracranial arterial abnormality is seen.? ? Within the arteries of the neck, no hemodynamically significant stenosis can be seen. ? ? If there is strong clinical suspicion for an acute stroke, please consider a brain MRI for further evaluation, as it is more sensitive (assuming that there is no contraindication to MRI). ? ? Additional findings:? Pvna-rv-rsonhtam cervical spine degenerative change Left-sided chest port ? Any quantitative measurements of stenosis were performed using NASCET criteria.? ? ? Dictated by: Sanket Hernandez M.D. on 09/23/2022 at 13:47 ? ? Approved by: Sanket Hernandez M.D. on 09/23/2022 at 13:50?? CT scan - head: Radiologist's Impression: MichelleAmaurianíbal M??71??F??1950 ? Allergy/Adv: No Known Drug Allergies Close Head/Neck CTA (Signed) Sanket Hernandez - 09/23/[address] (Signed) Anish Jennings - 09/23/22 Mammogram Screening (Signed) Faraz Guthrie - 07/22/22 Mammogram Screening (Signed) Faraz Guthrie - 03/22/21 DI Result CC 01/14/20 Knee MRI (Signed) Dwayne Benton - 09/02/19 Knee MRI (Signed) Dwayne Benton - 09/02/19 Mammogram Screening (Signed) Chad Conti - 04/22/19 Telemetry Strips 05/05/18 DEXA Result 04/13/18 Renal Ultrasound (Signed) ShellMarely - 04/07/18 Lumbar Spine X-Ray (Signed) Alberto Gerber - 04/01/18 Hip X-Ray (Signed) Alberto Gerber - 04/01/18 Launch?Image [address] [address] [address] Scan Report Signed Patient: Reji Martniez MR#: [id number] : 1950 Acct:[id number] Age/Sex: 71 / F Date of Service: 09/23/22 Loc: Accession Number: [id number] ?? Procedure: CT angio head and neck Ordering Provider: Vy Lowe D.O. PROCEDURE:? CT ANGIO HEAD AND NECK ? INDICATIONS:? aphasia, resolved, gait change still present ? TECHNIQUE:? Noncontrast images were performed earlier in the day and not repeated.? ? After the administration of intravenous contrast, 1 mm thick sections acquired from the aortic arch through the [place].? Post-contrast 4.5 mm thick sections then re-acquired from the foramen magnum to the vertex.? 3-dimensional ctqqmkl-vifcgkhyw-rdsrjxdbxi (MIP) and/or volume rendering reformats were acquired of the central intracranial vasculature and neck separately. For radiation dose reduction, the following was used:? automated exposure control, adjustment of mA and/or kV according to patient size.? ? COMPARISON:? [facility], CT, CT STROKE, 09/23/2022, 14:10. ? FINDINGS:? Image quality:? This examination is limited by involuntary motion artifact.? ? BRAIN:? CSF spaces:? Ventricles are normal in size and shape.? Basal cisterns are patent.? No extra-axial fluid collections.? ? Brain:? No midline shift.? No intracranial bleeds or masses.? Negrete-white matter interface appears intact.? ? Skull and face:? Calvarium and facial bones appear intact, without suspicious lesions.? Orbits appear normal.? ? Sinuses:? Sinuses and mastoids are clear.? ? HEAD CT ANGIOGRAPHY:? Anterior circulation:? Intracranial internal carotid arteries are normal in size and flow.? The flow within the paired anterior cerebral arteries is normal and symmetric.? The flow within the middle cerebral arteries is normal and symmetric.? The anterior communicating artery is seen.? No aneurysms are seen.? ? Posterior circulation:? Visualized portions of the vertebral arteries demonstrate normal caliber, and join to form a normal appearing basilar artery.? Flow within the posterior cerebral arteries is normal and symmetric.? No aneurysms are seen.? ? NECK CT ANGIOGRAPHY:? Carotid system:? The great vessels demonstrate a conventional anatomy as they arise from the aortic arch.? The origins of the common carotid arteries appear patent.? The common carotid arteries demonstrate normal caliber and courses.? The bifurcation regions are both widely patent.? The internal carotid arteries demonstrate normal calibers and courses.? ? Posterior circulation:? The origins of the vertebral arteries both appear widely patent.? The more superior extracranial portions of both vertebral arteries also demonstrate normal courses and calibers.? They join to form a normal appearing basilar artery.? ? Soft tissues:? Visualized neck soft tissues demonstrate no suspicious abnormalities.? A left-sided chest port is partially seen. ? Bones:? No suspicious bony lesions.? Visualized cervical spine appears normally aligned.? Zngz-fl-jbfemvvr cervical spine degenerative change is seen. ? ? IMPRESSION:? No significant intracranial arterial abnormality is seen.? ? Within the arteries of the neck, no hemodynamically significant stenosis can be seen. ? ? If there is strong clinical suspicion for an acute stroke, please consider a brain MRI for further evaluation, as it is more sensitive (assuming that there is no contraindication to MRI). ? ? Additional findings:? Nrog-nh-xcokxxar cervical spine degenerative change Left-sided chest port ? Any quantitative measurements of stenosis were performed using NASCET criteria.? ? ? Dictated by: Sanket Hernandez M.D. on 09/23/2022 at 13:47 ? ? Approved by: Sanket Hernandez M.D. on 09/23/2022 at 13:50?? ECG Data Attestation: I personally reviewed and interpreted this ECG as follows: Prior ECG tracings: not available for review Interpretation: Normal sinus rhythm with sinus arrhythmia rate of 76 HI 144 QRS 86 QTC 443. No acute ST elevation. No priors available. MDM Narrative Medical decision making narrative: This is a 71-year-old female who presents with complaint of aphasia that is resolved but still feeling a little bit off. Nursing noticed she is little bit off balance with her gait but patient states her knee has been injured and is affecting her balance. Patient's NIH is otherwise 0 on examination. And patient is not a tPA candidate as symptoms are resolved. She states symptoms have resolved. Initial head CT is-324 mg aspirin given, CT angio does not show any acute stenosis, dissection or change. Labs do show mild hyponatremia, patient states she noted she has low platelets but they are appropriate today at 164, coags are negative, sodium is 129 potassium is normal at 4.7 chloride is 94 with a BUN of 24 glucoses appropriate 108. of care glucose at bedside was appropriate as well. Troponin was negative. Tox screen is negative. COVID screen is negative. Patient's NIH is 0. Patient case was discussed with Dr. Cadet hospitalist who accepts for observation. Brain MR was ordered to facilitate workup. Discharge Plan Departure Patient Disposition: Admitted as Observation Clinical Impression: TIA (transient ischemic attack), Hyponatremia Admit Date/Time: 09/23/22 15:55 Admit Provider: Syeda Cadet
[2022-09-23 14:33] LABS: Add Manual Diff / Slide Review NO; Basophils Absolute Auto 0 /uL (0-100); Basophils Percent Auto 0.3 % (0-2); Eosinophils Absolute Auto 100 /uL (0-450); Eosinophils Percent Auto 2.3 % (2-4); Hematocrit 36.1 % (36-46); Hemoglobin 12.3 g/dL (12.0-16.0); Lymphocytes Absolute Auto 1500 /uL (1100-4500); Lymphocytes Percent Auto 28.2 % (25-40); Mean Corpuscular HGB Conc 34.2 % (30-36); Mean Corpuscular Hemoglobin 34.3 PG (26-34); Mean Corpuscular Volume 100.3 fL (80-100); Monocytes Absolute Auto 600 /uL (0-900); Monocytes Percent Auto 10.3 % (3-14); Neutrophils Absolute Auto 3200 /uL (1500-7000); Neutrophils Percent Auto 58.9 % (50-75); Platelet Count 164 X10^3/uL (150-400); Red Cell Distribution Width 12.3 % (11.6-14.8); White Blood Cell Count 5.5 X10^3/uL (4.5-11.0)
[2022-09-23 14:34] LABS: Alanine Aminotransferase 33 IU/L (<35); Albumin 4.2 g/dL (3.5-5.0); Albumin Globulin Ratio 1.4 (1.0-2.8); Alkaline Phosphatase 92 U/L (38-126); Aspartate Aminotransferase 43 IU/L (14-36); BUN Creatinine Ratio 30.4 (6-22); Bilirubin Total 0.5 mg/dL (0.2-1.3); Blood Urea Nitrogen 24 mg/dL (7-17); Calcium 9.2 mg/dL (8.4-10.2); Carbon Dioxide 27 mmol/L (22-32); Chloride 94 mmol/L (98-107); Creatine Kinase 179 U/L (30-135); Estimated Glomerular Filt Rate > 60 mL/min (>60); Ethanol (ETOH) < 10 mg/dL; Globulin 3.1 g/dL (1.7-4.1); Glucose 108 mg/dL (80-110); HEMOLYSIS 18 (0-50); Potassium 4.7 mmol/L (3.4-5.1); Sodium 129 mmol/L (137-145); Total Protein 7.3 g/dL (6.3-8.2)
[2022-09-23 14:36] LABS: Prothrombin Time 11.4 SECONDS (10.1-12.7)
[2022-09-23 14:39] LABS: PTT Partial Thromboplastin Tim 34 SECONDS (26-36)
[2022-09-23 14:45] LABS: Troponin I < 0.012 ng/mL (0.01-0.034)
[2022-09-23 14:47] LABS: COVID19 -Nasal RAPID Negative (Negative)
[2022-09-23 14:49] LABS: CKMB % Relative Index 2.1 % (1.5-5.0); Creatine Kinase MB 3.75 ng/mL (<2.37)
[2022-09-23 14:58] LABS: UR Morphine/Opiate cutoff 300 Negative (Negative); Ur Creatinine Normal (Normal); Ur Specific Gravity Normal (Normal); Urine Amphetamines Negative (Negative); Urine Barbiturates Negative (Negative); Urine Benzodiazepines Negative (Negative); Urine Cocaine Negative (Negative); Urine MDMA Negative (Negative); Urine Methadone Negative (Negative); Urine Methamphetamines Negative (Negative); Urine Oxycodone Negative (Negative); Urine Phencyclidine Negative (Negative); Urine Tetrahydrocannabinol Negative (Negative); Urine Tricyclic Antidepressant Negative (Negative); Urine pH Normal (Normal)
[2022-09-23] MEDS: ASPIRIN 81 MG CHEW TAB 324 MG PO (14:58)
[2022-09-23 15:15] LABS: Bacteria Urine None Seen; Culture Indicated Urine Cult Not Indicated; RBC Urine None Seen (0-5/HPF); Squamous Epithelial Cell Urine 0-1 /HPF (0-5/HPF); WBC Urine None Seen (0-5/HPF)
--- NOTE | 2022-09-23 15:54 | DI.MRI.S_ITS ---
PROCEDURE: MR HEAD/BRAIN WO CON INDICATIONS: tia, expressive aphasia resolved. TECHNIQUE: Non-contrast axial T1 spin echo, axial T2 fast spin echo, sagittal and axial FLAIR, coronal T2 fast spin echo, axial gradient echo, axial diffusion and ADC through the brain. COMPARISON: None. FINDINGS: Image quality: Excellent. CSF spaces: Ventricles appear symmetric in size and shape. Basal cisterns are patent. No extra-axial fluid collections. Brain: No intracranial bleeds or mass effects. There is minor cerebral volume loss for age. There are mild confluent periventricular and nodular subcortical white matter chronic small vessel ischemic changes. Brainstem appears normal. Diffusion-weighted images show no acute ischemic insults. No chronic ischemic insults. Normal intravascular flow voids are present. Skull and face: Calvarial bone marrow is normal in signal. Orbits are normal. Sinuses: Sinuses and mastoids are clear. IMPRESSION: 1. No MR evidence acute or subacute ischemia. 2. Mild age-related and chronic microvascular ischemic changes. Dictated by: Shantel Parr M.D. on 09/23/2022 at 17:09 Approved by: Shantel Parr M.D. on 09/23/2022 at 17:12
--- NOTE | 2022-09-23 18:08 | PC.NURSE ---
Patient arrived to room at 515. She denies any vision issues, speech is clear, she is able to lift her arms and legs with no drift down towards the bed. Voices no complaints of pain and is resting in bed.
--- NOTE | 2022-09-23 20:55 | PM.HP.1 ---
History of Present Illness History of Present Illness Date Patient Seen: 09/23/22 Time Patient Seen: 20:55 Chief complaint: thinks she had a stroke Narrative: Reji Martinez ?71-year-old female with a hx of cervical cancer, dyslipidemia, thrombocytopenia, SVT with ablation, essential hypertension, and current ovarian cancer on Avastin. Today had an episode 15-20 minute episode of aphasia where she could not talk at all, with a mild LEE which was resolved prior to arrival in ED.?Nursing noted she seemed to be a little off balance, she does not appreciate any weakness.? Patient states she is completed her chemo she did have debulking surgery in the past she has a port in place. Her primary Dr. Dickinson and Dr. King for her oncology team. In ED patient was significantly hypertensive BP is 181/80, 193/95, 191/88, tachypneic RR 20-28. On admit patient states that symptoms have not returned, she is currently completely asymptomatic. Denies chest pain, shortness in breath, headache, changes in vision, difficulty swallowing, speech impairment, weakness, numbness, tingling, difficulty with ambulation, recent falls, head injury, LOC, fever, body aches, chills, cough, recent exposure to illness, abdominal pain, nausea, vomiting, urinary incontinence/retention, dysuria, frequency, urgency, hematuria, bowel changes, constipation, incontinence, melena, rashes, recent changes to medication, illness, injury, or trauma. At the time of admit temp 97?, BP 153/82, HR 72, RR 18, O2 saturation 97% on room air. Patient's CBC is negative, sodium 129, chloride 94, BUN 24, TCK 179, CK-2:3.75, RI:neg, initial troponin negative, tox screen, ETOH, UA, COVID are all negative. Patient's EKG NSR at a rate of [address] or T-wave changes. CTA brain and neck: Negative patient admitted for TIA, hypertensive urgency and mild hyponatremia. Patient History Medical History Abdominal bloating Cervical cancer (1984) Change in bowel habit Chronic renal failure, stage 2 (mild) Current use of estrogen therapy Diarrhea DVT (deep venous thrombosis) Elbow fracture, right Essential hypertension Fracture of left pelvis (01/24/12) Fracture of right pubis (01/12/14) Osteoporosis, unspecified (08/15/11) Paroxysmal SVT (supraventricular tachycardia) Partial rectal prolapse Polyp of colon (09/25/09) Surgical History History of colonoscopy (2011) History of colonoscopy with polypectomy (2009) History of elbow surgery Status post hysterectomy (1984) Family & Social History Family History Brother CAD (coronary artery disease) Hx of CABG Brother HI (myocardial infarction) Stroke Brother HI (myocardial infarction) Hx of CABG Father CAD (coronary artery disease) HI (myocardial infarction) Mother Osteoporosis Smoker Pancreatic cancer Stroke CAD (coronary artery disease) Social History: household members spouse Prior Living Arrangements House Safety & Behavioral: Feels Safe in Current Yes Environment Been Physically Hurt or No Threatened By a Person Tobacco & Substance use: Smoking Status Former smoker alcohol intake never alcohol intake frequency 0-2 drinks per day Substance Use Type does not use Meds Home Medications and Allergies Home Medications Medication Instructions Recorded Confirmed Type bevacizumab 25 mg/mL intravenous 25 mg IV Q3W 09/23/22 09/23/22 History solution (Avastin) lisinopril 10 mg tablet 10 mg PO DAILY 09/23/22 09/23/22 History meloxicam 7.5 mg tablet 7.5 mg PO DAILY 09/23/22 09/23/22 History Allergies Allergy/AdvReac Type Severity Reaction Status Date / Time No Known Drug Allergies Allergy Verified 09/23/22 14:13 Review of Systems Review of Systems Narrative: All 12 point systems reviewed with the patient and are negative except otherwise documented. Exam Vital Signs (past 8 hours): - 09/23/22 14:00 09/23/22 14:06 09/23/22 14:06 Temperature Pulse Rate 95 H 95 H Respiratory Rate 20 22 Blood Pressure 193/95 H 193/95 H Pulse Oximetry 98 98 Oxygen Delivery Method Room Air Oxygen Flow Rate 09/23/22 14:18 09/23/22 14:18 09/23/22 14:22 Temperature Pulse Rate 87 80 Respiratory Rate 24 Blood Pressure 177/81 H Pulse Oximetry 99 98 Oxygen Delivery Method Oxygen Flow Rate 09/23/22 14:22 09/23/22 14:25 09/23/22 14:25 Temperature Pulse Rate 77 Respiratory Rate 16 Blood Pressure 181/80 H 177/81 H Pulse Oximetry 99 Oxygen Delivery Method Oxygen Flow Rate 09/23/22 14:30 09/23/22 14:30 09/23/22 14:42 Temperature Pulse Rate 80 82 Respiratory Rate 25 H 20 Blood Pressure 172/83 H Pulse Oximetry 98 98 Oxygen Delivery Method Oxygen Flow Rate 09/23/22 14:42 09/23/22 15:00 09/23/22 15:01 Temperature Pulse Rate 73 78 Respiratory Rate 25 H 28 H Blood Pressure 164/77 H Pulse Oximetry 99 99 Oxygen Delivery Method Oxygen Flow Rate 09/23/22 15:01 09/23/22 15:30 09/23/22 15:31 Temperature Pulse Rate 68 69 Respiratory Rate 17 17 Blood Pressure 191/88 H Pulse Oximetry 97 97 Oxygen Delivery Method Oxygen Flow Rate 09/23/22 15:31 09/23/22 16:00 09/23/22 16:03 Temperature Pulse Rate 72 67 Respiratory Rate 20 Blood Pressure 176/82 H Pulse Oximetry 98 99 Oxygen Delivery Method Room Air Oxygen Flow Rate 09/23/22 16:03 09/23/22 17:35 09/23/22 19:55 Temperature 98.7 F 97.0 F L Pulse Rate 83 72 Respiratory Rate 18 18 Blood Pressure 160/77 H 166/79 H 153/82 H Pulse Oximetry 100 97 Oxygen Delivery Method Oxygen Flow Rate 0 0 Oxygen Delivery Method Room Air Oxygen Flow Rate 0 Narrative Exam Narrative: General: Patient is a well-developed, well-nourished in no distress at this time. HEENT: Normocephalic, atraumatic, extraocular muscles intact, oral pharynx is clear and mucous membranes are moist. Neck is supple and symmetric, trachea is midline, no adenopathy, no thyroid enlargement, nontender, no masses palpated. Negative for JVD Chest: Normal AP diameter and contour without kyphoscoliosis, no nasal flaring, retractions, or tachypneic labored Lungs: Auscultation of all lung fisher are clear without adventitious sounds, wheezes, rhonchi, or rales. Cardio: S1 & S2 with regular rate and rhythm without murmur, rubs, or gallops, no carotid bruit, no cardiac pulsations present. Abdomen: Soft nontender, negative for organomegaly, or masses. Bowel sounds are present in all 4 quadrants without guarding or rebound, no CVA tenderness. Musculoskeletal: Muscle strength and tone are equal within normal limits, no deformity, crepitus, effusions, cyanosis, clubbing or edema present. Full range of motion intact radial and pedal pulses are normal. Skin: Warm dry and intact without rashes, ulcerations or petechiae. Neuro: Alert and orientated x3, strength is +5/5 in all extremities, sensation to touch intact, no gross deficits noted of cranial nerves. NIH:0 Psych: Patient has a well-kept appearance, appropriate affect, mental status attitude thought context and judgment are appropriate for age. Objective Labs 09/23/22 14:00 09/23/22 14:00 Labs: Laboratory Results - last 24 hr 09/23/22 09/23/22 09/23/22 14:00 14:00 14:00 WBC 5.5 RBC 3.60 L Hgb 12.3 Hct 36.1 MCV 100.3 H MCH 34.3 H MCHC 34.2 RDW 12.3 Plt Count 164 Neut % (Auto) 58.9 Lymph % (Auto) 28.2 [place] % (Auto) 10.3 Eos % (Auto) 2.3 Baso % (Auto) 0.3 Neut # (Auto) 3200 Lymph # (Auto) 1500 [place] # (Auto) 600 Eos # (Auto) 100 Baso # (Auto) 0 PT 11.4 INR 1.0 APTT 34 Sodium 129 L Potassium 4.7 Chloride 94 L Carbon Dioxide 27 BUN 24 H Creatinine 0.79 Estimated GFR > 60 BUN/Creatinine Ratio 30.4 H Glucose 108 Calcium 9.2 Total Bilirubin 0.5 AST 43 H ALT 33 Alkaline Phosphatase 92 Total Creatine Kinase 179 H CK-MB (CK-2) 3.75 H CK-MB (CK-2) Rel Index 2.1 Troponin I < 0.012 Total Protein 7.3 Albumin 4.2 Globulin 3.1 Albumin/Globulin Ratio 1.4 Urine RBC Urine WBC Ur Squamous Epith Cells Urine Bacteria Ur Culture Indicated? U Opiates 300ng/mL cut Ur Oxycodone Screen Urine Methadone Screen Ur Barbiturates Screen U Tricyclic Antidepress Ur Phencyclidine Scrn Ur Amphetamines Screen U Methamphetamines Scrn Ur MDMA Scrn (Ecstasy) U Benzodiazepines Scrn Urine Cocaine Screen U Marijuana (THC) Screen Ethyl Alcohol < 10 SARS-CoV-2 (PCR) 09/23/22 09/23/22 09/23/22 14:31 14:44 14:44 WBC RBC Hgb Hct MCV MCH MCHC RDW Plt Count Neut % (Auto) Lymph % (Auto) [place] % (Auto) Eos % (Auto) Baso % (Auto) Neut # (Auto) Lymph # (Auto) [place] # (Auto) Eos # (Auto) Baso # (Auto) PT INR APTT Sodium Potassium Chloride Carbon Dioxide BUN Creatinine Estimated GFR BUN/Creatinine Ratio Glucose Calcium Total Bilirubin AST ALT Alkaline Phosphatase Total Creatine Kinase CK-MB (CK-2) CK-MB (CK-2) Rel Index Troponin I Total Protein Albumin Globulin Albumin/Globulin Ratio Urine RBC None seen Urine WBC None seen Ur Squamous Epith Cells 0-1 /hpf Urine Bacteria None seen Ur Culture Indicated? Cult not indicated U Opiates 300ng/mL cut Negative Ur Oxycodone Screen Negative Urine Methadone Screen Negative Ur Barbiturates Screen Negative U Tricyclic Antidepress Negative Ur Phencyclidine Scrn Negative Ur Amphetamines Screen Negative U Methamphetamines Scrn Negative Ur MDMA Scrn (Ecstasy) Negative U Benzodiazepines Scrn Negative Urine Cocaine Screen Negative U Marijuana (THC) Screen Negative Ethyl Alcohol SARS-CoV-2 (PCR) Negative Assessment & Plan Assessment & Plan narrative: Reji Martinez ?71-year-old female with a hx of cervical cancer, dyslipidemia, thrombocytopenia, SVT with ablation, essential hypertension, and current ovarian cancer on Avastin. Today had an episode 15-20 minute episode of aphasia, with LEE which was resolved prior to arrival in ED. Patient admitted for TIA, hypertensive urgency and mild hyponatremia. [email or web address] can be discharged home tomorrow 1. TIA, acute, present on admission-resolved -aphasia with LEE, admit NIH 0 -ED: BP is 181/80, 193/95, 191/88, tachypneic RR 20-28. -CTA brain and neck: Negative -brain CT negative -brain MRI negative -Plavix, ASA, Lipitor -trend troponins x3 -permissive hypertension, though patient may need to increase lisinopril to 20 mg on discharge -PT/OT/speech consult, fall precautions 2. Hyponatremia, mild, acute, present on admission -sodium 129 -NS at 100cc/hr overnight -trend CMP 3. Hypertensive urgency, with essential hypertension, acute on chronic, present on admission -ED: BP is 181/80, 193/95, 191/88, admit 153/82 -continue lisinopril 10mg, again may need to increase dosage to 20 mg on discharge 4. Ovarian cancer, chronic, present on admission -Managed by Dr. King for her oncology team -Continue Avastin, Mobic 5. Malnutrition, mild, acute on chronic, present on admission -likely secondary to cancer, BMI 21.1 -patient's malnutrition places them at high risk for medical and surgical complications in relation to acute illness/chronic illness. This increases the difficulty in complexity of medical management and increases the chances poor outcomes such as mortality and morbidity as well as impaired wound healing, and immune suppression. -dietary consult ordered to evaluate and implement steps to improve caloric intake and nutrition. Code status: Full Surrogate decision maker: Spouse Geoff Martinez WALTER PCR: Negative DVT/VTE prophylaxis: Lovenox and SCDs Disposition: Patient admitted for observation expected length of stay less than 2 midnights, patient's MRI was negative can be discharged home tomorrow I have utilized all available immediate resources to obtain, update, or review the patient's current medications. I confirmed that the patient's advanced care plan is present, Code status is documented and/or surrogate decision maker is listed in the patient's medical record. I have personally reviewed patient's chart notes from PCP, specialists, diagnostic imaging, and laboratory results. Quality VTE Deep Vein Thrombosis/Pulmonary Embolism Present on Admission: No
[2022-09-23 21:26] LABS: NT-proBNP (BNP-Adult 18+) 225 pg/mL (<125)
[2022-09-23] MEDS: SODIUM CHLORIDE 0.9% 1,000 ML 100 ML IV (21:27)
[2022-09-23] MEDS: ATORVASTATIN 20 MG TABLET PO (21:27)
[2022-09-24 00:33] VITALS: BP 160/77; PULSE 76; RESP 18; TEMP 35.9; O2SAT 96
[2022-09-24 02:20] LABS: Magnesium 1.7 mg/dL (1.6-2.3)
[2022-09-24 04:15] VITALS: BP 138/74; PULSE 77; RESP 18; TEMP 35.8; O2SAT 96
--- NOTE | 2022-09-24 04:50 | PC.NURSE ---
Patient is alert and oriented w/NIH of 0. Breath sounds CTA with RA sat of 97%. HRR w/elevated BP of 153/82. Telemetry reading is SR. Denies nausea. BT present and abdomen is soft. Voiding without symptoms of dysuria, frequency or urgency. Is independent with mobility but calls for SBA out of bed related to IVF infusing and potential for TIA symptoms to recur. Bilateral calf SCD's were applied but unable to tolerate them so removed per her request. Denies any pain. Fall risk score is low.
[2022-09-24 06:58] LABS: HEMOLYSIS < 15 (0-50); Potassium 4.2 mmol/L (3.4-5.1)
[2022-09-24 06:59] LABS: Alanine Aminotransferase 28 IU/L (<35); Albumin 3.5 g/dL (3.5-5.0); Albumin Globulin Ratio 1.3 (1.0-2.8); Alkaline Phosphatase 56 U/L (38-126); Aspartate Aminotransferase 34 IU/L (14-36); Bilirubin Total 0.7 mg/dL (0.2-1.3); Blood Urea Nitrogen 17 mg/dL (7-17); Calcium 8.4 mg/dL (8.4-10.2); Carbon Dioxide 28 mmol/L (22-32); Chloride 100 mmol/L (98-107); Cholesterol 222 mg/dL (140-199); Estimated Glomerular Filt Rate > 60 mL/min (>60); Globulin 2.6 g/dL (1.7-4.1); Glucose 83 mg/dL (80-110); HDL Cholesterol 72 mg/dL (40-60); LDL Cholesterol Calculated 138 mg/dL (<100); Sodium 131 mmol/L (137-145); Total Protein 6.1 g/dL (6.3-8.2); Triglycerides 60 mg/dL (35-150)
[2022-09-24 07:54] VITALS: BP 156/87; PULSE 75; RESP 16; TEMP 36.6; O2SAT 96
--- NOTE | 2022-09-24 07:57 | PM.DS.1 ---
History of Present Illness History of Present Illness Date Patient Seen: 09/24/22 Time Patient Seen: 07:57 Chief complaint: thinks she had a stroke Narrative: Reji Martinez ?71-year-old female with a hx of cervical cancer, dyslipidemia, thrombocytopenia, SVT with ablation, essential hypertension, and current ovarian cancer on Avastin. Today had an episode 15-20 minute episode of aphasia where she could not talk at all, with a mild LEE which was resolved prior to arrival in ED.?Nursing noted she seemed to be a little off balance, she does not appreciate any weakness.? Patient states she is completed her chemo she did have debulking surgery in the past she has a port in place. Her primary Dr. Dickinson and Dr. King for her oncology team. In ED patient was significantly hypertensive BP is 181/80, 193/95, 191/88, tachypneic RR 20-28. On admit patient states that symptoms have not returned, she is currently completely asymptomatic. Denies chest pain, shortness in breath, headache, changes in vision, difficulty swallowing, speech impairment, weakness, numbness, tingling, difficulty with ambulation, recent falls, head injury, LOC, fever, body aches, chills, cough, recent exposure to illness, abdominal pain, nausea, vomiting, urinary incontinence/retention, dysuria, frequency, urgency, hematuria, bowel changes, constipation, incontinence, melena, rashes, recent changes to medication, illness, injury, or trauma. At the time of admit temp 97?, BP 153/82, HR 72, RR 18, O2 saturation 97% on room air. Patient's CBC is negative, sodium 129, chloride 94, BUN 24, TCK 179, CK-2:3.75, RI:neg, initial troponin negative, tox screen, ETOH, UA, COVID are all negative. Patient's EKG NSR at a rate of [address] or T-wave changes. CTA brain and neck: Negative patient admitted for TIA, hypertensive urgency and mild hyponatremia. Discharge Providers Provider Date of admission: 09/23/22 15:55 Discharge Date: 09/24/22 Primary care physician: Cj Morillo MD Consults: 09/23/22 20:48 Consult to Occupational Therapy Evaluate & Treat Comment: Physician Instructions: Evaluate and treat Consult to Physical Therapy Evaluate & Treat Comment: Physician Instructions: Evaluate and Treat Consult to Speech Therapy Evaluate & Treat Comment: Physician Instructions: Evaluate and treat 09/23/22 20:53 Consult to Dietitian, Adult Routine Comment: Reason For Exam: Ovarian CA, BMI 21.1 Consult to Discharge Planning Routine Comment: Discharge provider: See Cavanaugh DO Summary Hospital Course Discharge Diagnosis: 1. TIA, acute, present on admission-resolved -aphasia with LEE last 15-20 min then resolved, on admit NIH 0 -ED: BP is 181/80, 193/95, 191/88, tachypneic RR 20-28. -CTA brain and neck:? Negative -brain CT negative -brain MRI negative -Plavix, ASA, Lipitor due to ABCD of 4 -echo without clots 2. Hyponatremia, mild, acute, present on admission -sodium 129 on admit, improved to 131 -NS at 100cc/hr overnight -trend CMP 3. Hypertensive urgency, with essential hypertension, acute on chronic, present on admission, improved -ED: BP is 181/80, 193/95, 191/88, admit 153/82 -take at home lisinopril 10mg, increased dosage to 20 mg on discharge 4. Ovarian cancer, chronic, present on admission -Managed by Dr. King for her oncology team -Continue Avastin, Mobic 5. Malnutrition, mild,? acute on chronic, present on admission -likely secondary to cancer, BMI 21.1 -patient's malnutrition places them at high risk for medical and surgical complications in relation to acute illness/chronic illness.? This increases the difficulty in complexity of medical management and increases the chances poor outcomes such as mortality and morbidity as well as impaired wound healing, and immune suppression. -dietary consult ordered to evaluate and implement steps to improve caloric intake and nutrition. Hospital Course: Admitted for TIA due to 15-20 min of aphasia. MRI brain negative for stroke. ABCD score of 4 so started on DAPT. ASA indefinitely and plavix x21 days. Had quite high BP during admission up to 190's systolic so home lisinopril raised from 10mg to 20mg on discharge. Also put on lipitor nightly. Time Spent with Patient Time spent: Greater than 30 minutes Exam Vital Signs (past 8 hours): - 09/24/22 00:33 09/24/22 04:15 09/24/22 07:54 Temperature 96.7 F L 96.4 F L 97.8 F Pulse Rate 76 77 75 Respiratory Rate 18 18 16 Blood Pressure 160/77 H 138/74 156/87 H Pulse Oximetry 96 96 96 Oxygen Flow Rate 0 0 0 Oxygen Delivery Method Room Air Oxygen Flow Rate 0 Narrative Exam Narrative: General: Patient is a well-developed, well-nourished in no distress at this time. HEENT: Normocephalic, atraumatic, extraocular muscles intact, oral pharynx is clear and mucous membranes are moist. Neck is supple and symmetric, trachea is midline, no adenopathy, no thyroid enlargement, nontender, no masses palpated. Negative for JVD Chest: Normal AP diameter and contour without kyphoscoliosis, no nasal flaring, retractions, or tachypneic labored Lungs: Auscultation of all lung fisher are clear without adventitious sounds, wheezes, rhonchi, or rales. Cardio: S1 & S2 with regular rate and rhythm without murmur, rubs, or gallops, no carotid bruit, no cardiac pulsations present. Abdomen: Soft nontender, negative for organomegaly, or masses. Bowel sounds are present in all 4 quadrants without guarding or rebound, no CVA tenderness. Musculoskeletal: Muscle strength and tone are equal within normal limits, no deformity, crepitus, effusions, cyanosis, clubbing or edema present. Full range of motion intact radial and pedal pulses are normal. Skin: Warm dry and intact without rashes, ulcerations or petechiae. Neuro: Alert and orientated x3, strength is +5/5 in all extremities, sensation to touch intact, no gross deficits noted of cranial nerves. NIH:0 Psych: Patient has a well-kept appearance, appropriate affect, mental status attitude thought context and judgment are appropriate for age. Objective Labs 09/23/22 14:00 09/24/22 05:44 Labs: Laboratory Results - last 24 hr 09/23/22 09/23/22 09/23/22 14:00 14:00 14:00 WBC 5.5 RBC 3.60 L Hgb 12.3 Hct 36.1 MCV 100.3 H MCH 34.3 H MCHC 34.2 RDW 12.3 Plt Count 164 Neut % (Auto) 58.9 Lymph % (Auto) 28.2 [place] % (Auto) 10.3 Eos % (Auto) 2.3 Baso % (Auto) 0.3 Neut # (Auto) 3200 Lymph # (Auto) 1500 [place] # (Auto) 600 Eos # (Auto) 100 Baso # (Auto) 0 PT 11.4 INR 1.0 APTT 34 Sodium 129 L Potassium 4.7 Chloride 94 L Carbon Dioxide 27 BUN 24 H Creatinine 0.79 Estimated GFR > 60 BUN/Creatinine Ratio 30.4 H Glucose 108 Calcium 9.2 Magnesium Total Bilirubin 0.5 AST 43 H ALT 33 Alkaline Phosphatase 92 Total Creatine Kinase 179 H CK-MB (CK-2) 3.75 H CK-MB (CK-2) Rel Index 2.1 Troponin I < 0.012 NT-Pro-B Natriuret Pep Total Protein 7.3 Albumin 4.2 Globulin 3.1 Albumin/Globulin Ratio 1.4 Triglycerides Cholesterol LDL Cholesterol, Calc HDL Cholesterol Urine RBC Urine WBC Ur Squamous Epith Cells Urine Bacteria Ur Culture Indicated? U Opiates 300ng/mL cut Ur Oxycodone Screen Urine Methadone Screen Ur Barbiturates Screen U Tricyclic Antidepress Ur Phencyclidine Scrn Ur Amphetamines Screen U Methamphetamines Scrn Ur MDMA Scrn (Ecstasy) U Benzodiazepines Scrn Urine Cocaine Screen U Marijuana (THC) Screen Ethyl Alcohol < 10 SARS-CoV-2 (PCR) 09/23/22 09/23/22 09/23/22 14:06 14:06 14:31 WBC RBC Hgb Hct MCV MCH MCHC RDW Plt Count Neut % (Auto) Lymph % (Auto) [place] % (Auto) Eos % (Auto) Baso % (Auto) Neut # (Auto) Lymph # (Auto) [place] # (Auto) Eos # (Auto) Baso # (Auto) PT INR APTT Sodium Potassium Chloride Carbon Dioxide BUN Creatinine Estimated GFR BUN/Creatinine Ratio Glucose Calcium Magnesium 1.7 Total Bilirubin AST ALT Alkaline Phosphatase Total Creatine Kinase CK-MB (CK-2) CK-MB (CK-2) Rel Index Troponin I NT-Pro-B Natriuret Pep 225 H Total Protein Albumin Globulin Albumin/Globulin Ratio Triglycerides Cholesterol LDL Cholesterol, Calc HDL Cholesterol Urine RBC Urine WBC Ur Squamous Epith Cells Urine Bacteria Ur Culture Indicated? U Opiates 300ng/mL cut Ur Oxycodone Screen Urine Methadone Screen Ur Barbiturates Screen U Tricyclic Antidepress Ur Phencyclidine Scrn Ur Amphetamines Screen U Methamphetamines Scrn Ur MDMA Scrn (Ecstasy) U Benzodiazepines Scrn Urine Cocaine Screen U Marijuana (THC) Screen Ethyl Alcohol SARS-CoV-2 (PCR) Negative 09/23/22 09/23/22 09/24/22 14:44 14:44 05:44 WBC RBC Hgb Hct MCV MCH MCHC RDW Plt Count Neut % (Auto) Lymph % (Auto) [place] % (Auto) Eos % (Auto) Baso % (Auto) Neut # (Auto) Lymph # (Auto) [place] # (Auto) Eos # (Auto) Baso # (Auto) PT INR APTT Sodium 131 L Potassium 4.2 Chloride 100 Carbon Dioxide 28 BUN 17 Creatinine 0.74 Estimated GFR > 60 BUN/Creatinine Ratio 23.0 H Glucose 83 Calcium 8.4 Magnesium Total Bilirubin 0.7 AST 34 ALT 28 Alkaline Phosphatase 56 Total Creatine Kinase CK-MB (CK-2) CK-MB (CK-2) Rel Index Troponin I NT-Pro-B Natriuret Pep Total Protein 6.1 L Albumin 3.5 Globulin 2.6 Albumin/Globulin Ratio 1.3 Triglycerides 60 Cholesterol 222 H LDL Cholesterol, Calc 138 H HDL Cholesterol 72 H Urine RBC None seen Urine WBC None seen Ur Squamous Epith Cells 0-1 /hpf Urine Bacteria None seen Ur Culture Indicated? Cult not indicated U Opiates 300ng/mL cut Negative Ur Oxycodone Screen Negative Urine Methadone Screen Negative Ur Barbiturates Screen Negative U Tricyclic Antidepress Negative Ur Phencyclidine Scrn Negative Ur Amphetamines Screen Negative U Methamphetamines Scrn Negative Ur MDMA Scrn (Ecstasy) Negative U Benzodiazepines Scrn Negative Urine Cocaine Screen Negative U Marijuana (THC) Screen Negative Ethyl Alcohol SARS-CoV-2 (PCR) [facility] Medical History Abdominal bloating Cervical cancer (1984) Change in bowel habit Chronic renal failure, stage 2 (mild) Current use of estrogen therapy Diarrhea DVT (deep venous thrombosis) Elbow fracture, right Essential hypertension Fracture of left pelvis (01/24/12) Fracture of right pubis (01/12/14) Osteoporosis, unspecified (08/15/11) Paroxysmal SVT (supraventricular tachycardia) Partial rectal prolapse Polyp of colon (09/25/09) Surgical History History of colonoscopy (2011) History of colonoscopy with polypectomy (2009) History of elbow surgery Status post hysterectomy (1984) Family History Brother CAD (coronary artery disease) Hx of CABG Brother [place] (myocardial infarction) Stroke Brother [place] (myocardial infarction) Hx of CABG Father CAD (coronary artery disease) [place] (myocardial infarction) Mother Osteoporosis Smoker Pancreatic cancer Stroke CAD (coronary artery disease) Social History household members: spouse Smoking Status: Former smoker alcohol intake: never substance use type: does not use Discharge Plan Discharge Plan Patient Disposition: Home Provider Discharge Comment: You were admitted for symptoms concerning for stroke. Your MRI brain showed no strokes so you may have had a TIA. You will now be on a baby aspirin daily plus plavix because your TIA score was high. We've also started you on a statin for cholesterol control. Your heart echo was completed but not back yet so please see your PCP to f/u about this. Discharge orders & Medications Prescriptions: New atorvastatin [Lipitor] 20 mg Tablet 20 mg PO BEDTIME Qty: 30 0RF aspirin 81 mg capsule 81 mg PO DAILY Qty: 30 0RF lisinopril 20 mg tablet 20 mg PO DAILY Qty: 30 0RF clopidogrel [Plavix] 75 mg tablet 75 mg PO DAILY 20 Days Qty: 20 0RF Rx Instructions: start on 09/25 Continued Avastin 25 mg/mL Solution 25 mg IV Q3W Discontinued lisinopril 10 mg Tablet 10 mg PO DAILY meloxicam 7.5 mg Tablet 7.5 mg PO DAILY Follow up/Referrals: Cj Morillo MD [Primary Care Provider] - 2 Weeks Visit Report/Discharge Packet Instructions: DI for Transient Ischemic Attack Stand Alone Forms: Patient Portal/API, Stroke Signs & Symptoms Discharge Data Primary Care Provider: Cj Morillo Attending Provider: Syeda Cadet Admit Date/Time: 09/23/22 15:55 Discharges patient from system. Discharge Date/Time: 09/24/22 11:09 Quality VTE Deep Vein Thrombosis/Pulmonary Embolism Present on Admission: No
--- NOTE | 2022-09-24 08:17 | PT.IIE ---
Surgical History (Last Reviewed 09/24/22 @ 01:38 by Praveena Jennings [facility]) History of colonoscopy (2011) History of colonoscopy with polypectomy (2009) History of elbow surgery Status post hysterectomy (1984) Medical History (Last Reviewed 09/24/22 @ 01:38 by Praveena Jennings [facility]) Abdominal bloating Cervical cancer (1984) Change in bowel habit Chronic renal failure, stage 2 (mild) Current use of estrogen therapy Diarrhea DVT (deep venous thrombosis) Elbow fracture, right Essential hypertension Fracture of left pelvis (01/24/12) Fracture of right pubis (01/12/14) Osteoporosis, unspecified (08/15/11) Paroxysmal SVT (supraventricular tachycardia) Partial rectal prolapse Polyp of colon (09/25/09) Physical Therapy Inpatient Evaluation/Re-Eval M1 PT/OT-IP Prior Functional Status Start: 09/24/22 07:33 Freq: NEEDED Status: Active Protocol: Document 09/24/22 08:03 [facility] (Rec: 09/24/22 08:16 [facility] [id number]) Medical Review Prior Functional Status Medical History Reviewed Yes Diet/Fluid Consistency Regular Communication WNL Mobility and Gait Pt indep w/o AD Activities of Daily Living and IADL's pt cooks, cleans, drives Social History Household Members spouse Living Arrangements House Number of Floors (Floors) Two Floors Number of Stairs To Enter/Railing? no cailin Home Environment High Toilet,Walk in Shower Home Equipment Grab Bars Near Toilet,Grab Bars In Shower Employment Status Retired M2 PT-IP Current Condition Start: 09/24/22 07:33 Freq: NEEDED Status: Active Protocol: Document 09/24/22 08:03 [facility] (Rec: 09/24/22 08:16 [facility] [id number]) Physical Therapy Current Condition Current Condition Evaluation Date 09/24/22 Treatment Diagnosis TIA M3 PT-IP Subjective Start: 09/24/22 07:33 Freq: NEEDED Status: Active Protocol: Document 09/24/22 08:03 [facility] (Rec: 09/24/22 08:16 [facility] [id number]) Subjective Physical Therapy Visit Type Type Initial Evaluation Visit Start Time 07:35 Visit Stop Time 07:57 Total Visit Minutes 27 Number of LAW OFFICE ASSISTANT Visits 0 M4 PT-IP Mobility and Gait Start: 09/24/22 07:33 Freq: NEEDED Status: Active Protocol: Document 09/24/22 08:03 [facility] (Rec: 09/24/22 08:16 [facility] [id number]) PT-Bed Mobility Assessment Supine to Sit Supine to Sit Independent Sit to Supine Sit to Supine Independent Scooting Scooting to Edge of Bed Independent Scooting Up and Down in Bed Independent PT-Transfer Assessment Sit to and From Stand Sit to and from Stand Independent Equipment Transfer Assistive Device Gait Belt Orthotic/Prosthetic Devices or Brace: No Transfers Transfer Destination Chair Transfer Technique Stand Step Pivot Transfer Ability Level of Assist Independent Gait Assessment Gait Gait Assistance Required: Independent Distance (Feet) 50 Assistive Devices Assistive Device Gait Belt Orthotic/Prosthetic Devices or Brace: No Gait Deviations General Gait Pattern Within Normal Limits PT-Balance Assessment Sitting Balance and Reactions Static Sitting Balance Ability Normal Dynamic Sitting Balance Ability Normal Standing Balance and Reactions Static Standing Balance Ability Normal Dynamic Standing Balance Ability Normal Device Used none Balance Tests Staples Balance Test Score 53/56 Query Text:Score M5 PT-IP Objective Assessments Start: 09/24/22 07:33 Freq: NEEDED Status: Active Protocol: Document 09/24/22 08:03 [facility] (Rec: 09/24/22 08:16 [facility] [id number]) Orientation Orientation/Cognition Level of Alertness Alert Language Function Ability No Deficits Noted Safety Awareness Understands Safety Issues Memory Description No Deficits Noted Gross Range of Motion Upper Extremity ROM Assessment Within Functional Limits Lower Extremity ROM Assessment Within Functional Limits Impairments B knee pain limited Strength Upper Extremity Strength Assessment Within Functional Limits Shoulder 4/5 B Elbow 5/5 B Hand 5/5 B Lower Extremity Strength Assessment Within Functional Limits Hip 4/5 Knee 4/5 Ankle 5/5 M6 PT-IP Treatment Start: 09/24/22 07:33 Freq: NEEDED Status: Active Protocol: Document 09/24/22 08:03 [facility] (Rec: 09/24/22 08:16 [facility] [id number]) Physical Therapy Treatment Education Education Provided Safety M7 PT-IP Assessment and Plan Start: 09/24/22 07:33 Freq: NEEDED Status: Active Protocol: Document 09/24/22 08:03 [facility] (Rec: 09/24/22 08:16 [facility] [id number]) PT Summary Assessment and Plan Potential Rehabilitation Potential Excellent Status of Condition at Evaluation Stable Summary Assessment Summary Pt did well with all moblity and was able to well with PT without any difficulty besides pain w/sit to stand so uses UEs. She shows no evidence for imbalance and did well on STAPLES showing low riskf or falls. Pt educated to use call light if feels LEE, lightheadedness, weakness etc. Pt indep and is DC from PT. Frequency of Treatment Frequency Of Treatment Discharge Discharge Recommendations PT Discharge Recommendations Home,Outpatient PT Other Discharge Recommendations OP PT for knee pain Transportation Needs at Discharge Private Vehicle
--- NOTE | 2022-09-24 08:26 | OT.IPNOTE ---
Pt feels that she is back to normal and has no OT needs per pt. Pt states will just let her drive for now. Discharge OT eval orders.
[2022-09-24 09:47] VITALS: BP 156/87
[2022-09-24] MEDS: CLOPIDOGREL 75 MG TABLET PO (09:47)
[2022-09-24] MEDS: ENOXAPARIN 40 MG/0.4 ML SYRINGE SUBCUT (09:47)
[2022-09-24] MEDS: lisinopriL 10 MG TABLET PO (09:47)
[2022-09-24] MEDS: MELOXICAM 7.5 MG TABLET PO (09:47)
[2022-09-24] MEDS: ASPIRIN EC 325 MG TABLET PO (09:47)
--- NOTE | 2022-09-24 09:58 | DI.ECHO.S_ITS ---
Interpretation Summary The ejection fraction is estimated to be 55-60%. Diastolic parameters suggest probable normal left ventricular diastolic function and normal filling pressures. The right ventricle is normal in size and function. There is mild tricuspid regurgitation. The right ventricular systolic pressure is estimated to be at least 25 mmHg based on an estimated right atrial pressure of 3 mm Hg. Compared to the prior study dated 09/22/2018, no significant change. Procedure: A two-dimensional transthoracic echocardiogram with color flow and Doppler was performed. The study quality was technically good. Comparison is made with the echocardiogram of 09/22/2018. The patient was in sinus rhythm with heart rates between 64-71 bpm during the exam. Left Ventricle: The left ventricle is normal in size. There is normal left ventricular wall thickness. The ejection fraction is estimated to be 55-60%. Diastolic parameters suggest probable normal left ventricular diastolic function and normal filling pressures. Right Ventricle: The right ventricle is normal in size and function. Atria: The left atrial size is normal. Right atrial size is normal. There is no Doppler evidence for an interatrial shunt. Mitral Valve: The mitral valve is normal in structure and function. There is trace mitral regurgitation. Aortic Valve: The aortic valve is normal in structure and function. The aortic valve is trileaflet. There is no aortic valve stenosis. No aortic regurgitation is present. Tricuspid Valve: The tricuspid valve is normal in structure and function. There is mild tricuspid regurgitation. The right ventricular systolic pressure is estimated to be at least 25 mmHg based on an estimated right atrial pressure of 3 mm Hg. Pulmonic Valve: The pulmonic valve leaflets are thin and pliable; valve motion is normal. There is trace pulmonic regurgitation. Great Vessels: The aortic root is normal size. The dimensions of the ascending aorta are normal. The IVC is of normal diameter and collapses greater than 50% with a sniff. This suggests a low right atrial pressure of 3 mm Hg. Pericardium/ Pleura There is no pericardial effusion. There is no pleural effusion. MMode/2D Measurements & Calculations LVIDd: 4.5 cm LVOT diam: 2.0 cm LVIDs: 2.9 cm Ao root diam: 3.2 cm FS: 35.7 % asc Aorta Diam: 3.0 cm EPSS: 0.76 cm Ao Arch Diam (Prox Trans): 2.1 cm IVSd: 0.81 cm LVPWd: 0.62 cm LV moe. diameter/BSA (cm/m^2): 2.7 LV sys. diameter/BSA (cm/m^2): 1.7 LA A2 area: 15.1 cm2 RA long axis: 4.1 cm LA A4 area: 15.3 cm2 RA area: 14.8 cm2 LA length (vol): 4.4 cm RA vol: 45.9 ml LA vol: 44.7 ml RA : 27.2 ml/m2 LA vol index: 26.5 ml/m2 IVC diam: 1.3 cm RVD1 (basal): 3.7 cm RVD2 (mid): 2.8 cm TAPSE: 1.7 cm Doppler Measurements & Calculations Ao V2 max: 96.4 cm/sec LVOT Max Harley: 75.6 cm/sec Ao V2 mean: 67.4 cm/sec LV V1 max P.3 mmHg Ao max P.7 mmHg LV V1 VTI: 18.3 cm Ao mean P.0 mmHg TRAE(I,D): 2.7 cm2 Ao V2 VTI: 20.8 cm TRAE(V,D): 2.4 cm2 sev ratio: 0.88 TRAE indexed to BSA (cm^2/m^2): 1.6 MV E max harley: 50.2 cm/sec TR max harley: 234.0 cm/sec MV A max harley: 57.4 cm/sec TR max P.9 mmHg MV E/A: 0.88 PA pr(Accel): 27.6 mmHg Med Peak E' Harley: 7.2 cm/sec E/E' med: 7.0 Lat Peak E' Harley: 7.8 cm/sec E/E' lat: 6.5 E/e' average: 6.7 MV dec time: 0.27 sec SV(LVOT): 56.2 ml Reading Physician:10:51 AM
--- NOTE | 2022-09-24 10:29 | ST.IPSCREEN ---
Pt was semi-reclined in bed with at bedside when DENTAL APPLIANCE REPAIRER arrived. She was alert and oriented x3. Completed OME and pt exhibited structure and function WNL for the purposes of speech and swallowing. Observed pt drink coffee through open cup with no overt signs or symptoms of aspiration. Speech therapy is not recommended at this time.
[2022-09-25 05:21] LABS: Labcorp Hemoglobin (Hb) A1c 5.3 % (4.8-5.6)
== END 2022-09-24 11:09 | disposition home or self-care (01) ==
LOC: ED 15:55 → AC 15:56
PROVIDERS: Nurse Practitioner Family; Admitting Provider Neuromusculoskeletal Medicine, Sports Medicine; Emergency Provider Emergency Medicine; PCP Student in an Organized Health Care Education/Training Program; Referring Provider Emergency Medicine; Visit Provider Neuromusculoskeletal Medicine, Sports Medicine
DX: G45.9 Transient cerebral ischemic attack, unspecified (principal); R47.01 Aphasia; C56.9 Malignant neoplasm of unspecified ovary; R29.700 NIHSS score 0; I10 Essential (primary) hypertension; I16.0 Hypertensive urgency; E87.1 Hypo-osmolality and hyponatremia; E46 Unspecified protein-calorie malnutrition; Z68.21 Body mass index [BMI] 21.0-21.9, adult; Z20.822 Contact with and (suspected) exposure to COVID-19
CPT/HCPCS: 36415; 70450; 70496; 70498; 70551; 80053; 80061; 80305; 80320; 81003; 81015; 82550; 82553; 82962; 83036; 83735; 83880; 84484; 85025; 85610; 85730; 87635; 93005; 93306; 96372; 97161; 99285; C9803; G0378; J1650; Q9967

== ENCOUNTER 2024-02-29 04:02 | Emergency (ER) | payer MEDICARE, SELFPAY ==
[2022-09-23 17:12] VITALS: BMI 21.1
[2024-02-29] VITALS (10 sets, daily range): BP systolic 170–213; BP diastolic 84–111; PULSE 70–102; RESP 12–27; TEMP 36.2–37; O2SAT 93–97; BMI 22.8
--- NOTE | 2024-02-29 04:09 | EKG_ITS ---
[address] [id number] [address] [address] Test Date: 2024-02-29 Pat Name: Reji Martinez Department: [facility] Room: Gender: Female Pathology Technician: JOJO Velez : 1950 Requested By: Order Number: [id number] Reading MD: Jarett Correia MD Measurements Intervals [place] Rate: 71 P: 43 AR: 118 QRS: 39 QRSD: 84 T: 38 QT: 424 QTc: 460 Interpretive Statements Sinus rhythm with marked sinus arrhythmia Electronically Signed On 02-29-2024 9:07:47 PDT by Jarett Correia MD
--- NOTE | 2024-02-29 04:14 | ED.GENADULT ---
HPI - General Adult General Chief complaint: Hypertension Stated complaint: headache Time Seen by Provider: 02/29/24 04:09 Source: patient and EMS Mode of arrival: EMS History of Present Illness HPI narrative: Patient is a 73-year-old female. History of ovarian cancer. Is currently undergoing treatment for this. She was on medications that her oncologist state can increase her blood pressure and she has been checking her blood pressure daily for many weeks now. She states that normally her blood pressures have been in the 130s to 150s systolic range over the past couple days it has been more in the 170s to 180s range. She stated that this evening she woke up to go to the bathroom. Shortly after walking up she noticed that she was having a headache. Describes it as a sharp and dull and throbbing pain. It is bilateral but more on the right than the left. It does go from the front to the back of the head. No fevers. No neck pain. Does having some photophobia. She states she normally does not get headaches. No chest pain or shortness of breath. She was on antihypertensive medicines what she has taken as directed. Related Data Home Medications Medication Instructions Recorded Confirmed bevacizumab 25 mg/mL intravenous 25 mg IV Q3W 09/23/22 12/04/22 solution (Avastin) meloxicam 7.5 mg tablet 7.5 mg PO 12/04/22 12/04/22 Previous Rx's Medication Instructions Recorded aspirin 81 mg capsule 81 mg PO DAILY #90 caps 12/04/22 atorvastatin 20 mg tablet (Lipitor) 20 mg PO BEDTIME #90 tabs 12/04/22 lisinopril 20 mg tablet 20 mg PO DAILY #90 tabs 12/04/22 Allergies Allergy/AdvReac Type Severity Reaction Status Date / Time metoprolol AdvReac Diarrhea Verified 02/29/24 04:11 Review of Systems Review of Systems Narrative: See HPI Patient History Medical History Dyslipidemia Peritoneal carcinomatosis Ovarian cancer History of TIA (transient ischemic attack) Diarrhea Change in bowel habit Abdominal bloating Partial rectal prolapse Essential hypertension Chronic renal failure, stage 2 (mild) Osteoporosis, unspecified (08/15/11) Paroxysmal SVT (supraventricular tachycardia) Current use of estrogen therapy DVT (deep venous thrombosis) Cervical cancer (1984) Elbow fracture, right Fracture of right pubis (01/12/14) Fracture of left pelvis (01/24/12) Polyp of colon (09/25/09) Surgical History History of colonoscopy with polypectomy (2009) History of colonoscopy (2011) History of elbow surgery Status post hysterectomy (1984) Family History Brother CAD (coronary artery disease) Hx of CABG Brother [place] (myocardial infarction) Stroke Brother [place] (myocardial infarction) Hx of CABG Father CAD (coronary artery disease) [place] (myocardial infarction) Mother Osteoporosis Smoker Pancreatic cancer Stroke CAD (coronary artery disease) Social History household members: spouse Smoking Status: Former smoker alcohol intake: never substance use type: does not use Smoking Status: Former smoker alcohol intake frequency: 0-2 drinks per day Substance Use Type: does not use Exam Initial Vital Signs Initial Vital Signs: Vital Signs Pulse Rate 102 H 02/29/24 04:04 Blood Pressure 213/111 H 02/29/24 04:04 Pulse Oximetry 96 02/29/24 04:04 Oxygen Delivery Method Room Air 02/29/24 04:04 Const General: cooperative and No ill appearing HENMT Head: normal to inspection and normocephalic Resp Effort & Inspection: normal respiratory effort Auscultation: clear to auscultation bilaterally Cardio Rate: regular rate Rhythm: regular rhythm GI Inspection: normal to inspection and non-distended Skin General: no rashes or lesions noted Neuro General: patient alert, patient awake, patient oriented x3 and moves all extremities Extrem General: capillary refill normal Course Orders Ordered: ED Orders 02/29/24 04:09 EKG-12 Lead Stat 02/29/24 04:15 CT head/brain wo con Stat 02/29/24 04:20 Complete Blood Count AUTO DIFF Stat Comprehensive Metabolic Panel Stat Lipase Stat Troponin & CK Cardiac Panel Stat Discontinued Medications Morphine Sulfate (Morphine 4 Mg/Ml Inj) 4 mg IV NOW ONE Stop: 02/29/24 04:16 Last Admin: 02/29/24 04:26 Dose: 4 mg Documented By: GC Vital Signs Vital signs: Vital Signs - 8 hr 02/29/24 04:04 02/29/24 04:04 02/29/24 04:11 Temperature 98.6 F Pulse Rate 102 H 80 Respiratory Rate 17 Blood Pressure 213/111 H 213/111 H Pulse Oximetry 96 93 Oxygen Delivery Method Room Air Room Air 02/29/24 04:30 02/29/24 04:31 02/29/24 04:31 Temperature Pulse Rate 77 80 Respiratory Rate 26 H 27 H Blood Pressure 183/98 H Pulse Oximetry 95 95 Oxygen Delivery Method 02/29/24 04:57 02/29/24 04:57 02/29/24 05:00 Temperature Pulse Rate 79 81 Respiratory Rate 14 16 Blood Pressure 206/99 H Pulse Oximetry 96 95 Oxygen Delivery Method Room Air 02/29/24 05:00 Temperature Pulse Rate Respiratory Rate Blood Pressure 192/97 H Pulse Oximetry Oxygen Delivery Method Medical Decision Making Lab Data Lab results reviewed: Yes I reviewed the patient's lab results. 02/29/24 04:20 02/29/24 04:20 Labs: Lab Results 02/29/24 Range/Units 04:20 WBC 4.1 L (4.5-11.0) X10^3/uL RBC 3.44 L (4.0-5.2) X10^6/uL Hgb 12.1 (12.0-16.0) g/dL Hct 35.2 L (36-46) % MCV 102.5 H (80-100) fL MCH 35.2 H (26-34) PG MCHC 34.3 (30-36) % RDW 12.7 (11.6-14.8) % Plt Count 138 L (150-400) X10^3/uL Neut % (Auto) 45.2 L (50-75) % Lymph % (Auto) 38.4 (25-40) % [place] % (Auto) 13.6 (3-14) % Eos % (Auto) 2.3 (2-4) % Baso % (Auto) 0.5 (0-2) % Neut # (Auto) 1800 (5131-0200) /uL Lymph # (Auto) 1600 (6263-0786) /uL [place] # (Auto) 600 (0-900) /uL Eos # (Auto) 100 (0-450) /uL Baso # (Auto) 0 (0-100) /uL Sodium 130 L (137-145) mmol/L Potassium 4.2 (3.4-5.1) mmol/L Chloride 98 (98-107) mmol/L Carbon Dioxide 26 (22-32) mmol/L BUN 21 H (7-17) mg/dL Creatinine 0.87 (0.52-1.04) mg/dL Estimated GFR > 60 (>60) mL/min BUN/Creatinine Ratio 24.1 H (6-22) Glucose 99 (80-110) mg/dL Calcium 9.1 (8.4-10.2) mg/dL Total Bilirubin 0.5 (0.2-1.3) mg/dL AST 43 H (14-36) IU/L ALT 32 (<35) IU/L Alkaline Phosphatase 83 (38-126) U/L Total Creatine Kinase 138 H (30-135) U/L Troponin I < 0.012 (0.01-0.034) ng/mL Total Protein 6.5 (6.3-8.2) g/dL Albumin 3.9 (3.5-5.0) g/dL Globulin 2.6 (1.7-4.1) g/dL Albumin/Globulin Ratio 1.5 (1.0-2.8) Lipase 78 (23-300) U/L Imaging Data CT scan - head: Radiologist's Impression: No CT evidence of an acute intracranial abnormality Cerebral volume loss, intracranial atherosclerotic disease and mild sequela of chronic small-vessel ischemic disease ECG Data Attestation: I personally reviewed and interpreted this ECG as follows: Interpretation: Sinus rhythm Ventricular rate is 71 Sinus arrhythmia Normal QRS Normal axis No ST T wave changes MDM Narrative Medical decision making narrative: Patient is having a headache it was bilateral but right worse than left. Is also hypertensive. Head CT shows no signs of intracranial hemorrhage. Patient was given pain medication. Her blood pressure improved as well. Her headache is now greatly improved and she states she feels well enough to go home. She was no signs of meningitis. No other focal neurologic symptoms. We discussed the possibility that they elevation of the blood pressure was because of the headache and not necessarily headache because of the elevation in the blood pressure. Low suspicion for intracranial hemorrhage given our workup and presentation to this point. Will discharge home with return precautions. She expressed understanding and agreement with plan. Discharge Plan Departure Patient Disposition: Home Clinical Impression: Hypertension, Headache Instructions: DI for High Blood Pressure, DI for Headache Activity Restrictions/Additional Instructions: I do recommend that you continue to take all of your medications as directed. I also recommend that you continue to take your blood pressure at home on a daily basis and talk with your oncologist about the results of this to see if they need to adjust any of your blood pressure medicines. Return to the emergency department for new symptoms. Prescriptions: No Action meloxicam 7.5 mg tablet 7.5 mg PO aspirin 81 mg capsule 81 mg PO DAILY Qty: 90 3RF atorvastatin [Lipitor] 20 mg tablet 20 mg PO BEDTIME Qty: 90 3RF lisinopril 20 mg tablet 20 mg PO DAILY Qty: 90 0RF Avastin 25 mg/mL Solution 25 mg IV Q3W Referrals: Miscellaneous,Doctor, MD [Primary Care Provider] - Stand Alone Forms: Patient Portal/API
--- NOTE | 2024-02-29 04:15 | DI.CT.S_ITS ---
PROCEDURE: CT HEAD/BRAIN WO CON INDICATIONS: HTN and headache TECHNIQUE: Noncontrast 4.5 mm thick angled axial sections acquired from the foramen magnum to the vertex, with coronal and sagittal reformats. For radiation dose reduction, the following was used: automated exposure control, adjustment of mA and/or kV according to patient size. COMPARISON: None. FINDINGS: Image quality: Diagnostic. CSF spaces: Basal cisterns are patent. No extra-axial fluid collections. The ventricles are symmetric in size and shape. Brain: No intracranial bleeds or masses. There is cerebral volume loss for age, with resultant ventricular and sulcal prominence. There are periventricular and deep white matter chronic small vessel ischemic changes. There is intracranial internal carotid artery atherosclerosis. Skull and face: Calvarium and visualized facial bones appear intact, without suspicious lesions. Sinuses: Visualized sinuses and mastoids are clear. IMPRESSION: No acute intracranial pathology. Findings are concordant with preliminary interpretation provided by [facility]. Dictated by: Steve Phan M.D. on 02/29/2024 at 7:55 Approved by: Steve Phan M.D. on 02/29/2024 at 7:56
[2024-02-29] MEDS: MORPHINE 4 MG/ML INJ IV (04:26)
[2024-02-29 04:28] LABS: Add Manual Diff / Slide Review NO; Basophils Absolute Auto 0 /uL (0-100); Basophils Percent Auto 0.5 % (0-2); Eosinophils Absolute Auto 100 /uL (0-450); Eosinophils Percent Auto 2.3 % (2-4); Hematocrit 35.2 % (36-46); Hemoglobin 12.1 g/dL (12.0-16.0); Lymphocytes Absolute Auto 1600 /uL (1100-4500); Lymphocytes Percent Auto 38.4 % (25-40); Mean Corpuscular HGB Conc 34.3 % (30-36); Mean Corpuscular Hemoglobin 35.2 PG (26-34); Mean Corpuscular Volume 102.5 fL (80-100); Monocytes Absolute Auto 600 /uL (0-900); Monocytes Percent Auto 13.6 % (3-14); Neutrophils Absolute Auto 1800 /uL (1500-7000); Neutrophils Percent Auto 45.2 % (50-75); Platelet Count 138 X10^3/uL (150-400); Red Blood Cell Count 3.44 X10^6/uL (4.0-5.2); Red Cell Distribution Width 12.7 % (11.6-14.8); White Blood Cell Count 4.1 X10^3/uL (4.5-11.0)
[2024-02-29 04:40] LABS: Alanine Aminotransferase 32 IU/L (<35); Albumin 3.9 g/dL (3.5-5.0); Albumin Globulin Ratio 1.5 (1.0-2.8); Alkaline Phosphatase 83 U/L (38-126); Aspartate Aminotransferase 43 IU/L (14-36); BUN Creatinine Ratio 24.1 (6-22); Bilirubin Total 0.5 mg/dL (0.2-1.3); Blood Urea Nitrogen 21 mg/dL (7-17); Calcium 9.1 mg/dL (8.4-10.2); Carbon Dioxide 26 mmol/L (22-32); Chloride 98 mmol/L (98-107); Creatine Kinase 138 U/L (30-135); Estimated Glomerular Filt Rate > 60 mL/min (>60); Globulin 2.6 g/dL (1.7-4.1); Glucose 99 mg/dL (80-110); HEMOLYSIS < 15 (0-50); Lipase 78 U/L (23-300); Potassium 4.2 mmol/L (3.4-5.1); Sodium 130 mmol/L (137-145); Total Protein 6.5 g/dL (6.3-8.2)
[2024-02-29 04:52] LABS: Troponin I < 0.012 ng/mL (0.01-0.034)
== END 2024-02-29 06:22 | disposition home or self-care (01) ==
PROVIDERS: Emergency Provider Emergency Medicine
DX: I10 Essential (primary) hypertension (principal); R51.9 Headache, unspecified; R07.9 Chest pain, unspecified; Z79.899 Other long term (current) drug therapy
CPT/HCPCS: 36415; 70450; 80053; 82550; 83690; 84484; 85025; 93005; 93010; 96374; 99284; J2270

== ENCOUNTER → 2024-10-11 10:17 | Outpatient (CLI) | payer MEDICARE, SELFPAY ==
[2022-09-23 17:12] VITALS: BMI 21.1
== END ==
PROVIDERS: Visit Provider Registered Nurse
DX: R05.1 Acute cough (principal)
CPT/HCPCS: 87070; 87147

== ENCOUNTER 2025-04-13 08:15 | Outpatient (RCR) | payer MEDICARE, SELFPAY ==
[2022-09-23 17:12] VITALS: BMI 21.1
--- NOTE | 2025-03-09 13:03 | OT.OP.EVAL ---
Visit Care Team Role Provider Type Yanet Juares PA-C Family Provider Non-Staff Primary Care Provider Specialty: Medical Address: [address] [place] [address], [place], [address] Email: Gilbert Holguin PA-C Attending Provider Non-Staff Referring Provider Specialty: Medical Address: [address] [place] [address] [place], [place], [address] Email: Occupational Therapy Initial Evaluation OT Outpatient Adult Evaluation Start: 03/08/25 10:16 Freq: Status: Active Protocol: Document 03/09/25 09:45 (Rec: 03/08/25 10:21 [id number]) General Information - Adult Visit Number 1 of 24 Plan of Care Dates 03/09/25-06/01/25 Insurance no pre-auth;no copay;KX modifier required after 19 OT Information visits pcy Visit Start Date 03/09/25 Visit Start Time 09:45 Visit Stop Time 10:30 Treatment Setting Outpatient Care Note Type Initial Evaluation Referring Physician Dr. Gilbert Talley Reason for Referral L wrist sprain Identification Yes Confirmed Identification EMR Confirmed By Social History It just kind of always hurts but I am able to push through it so I have put therapy off a bit too long probably Patient Questionnaires Quick Dash UE Score 40.9 Quick Dash UE 40 to 59% Impaired (Score 40-59) Impairment Quick Dash W&S Score W: 50; S: 50 Quick Dash Work and 40 to 59% Impaired (Score 40-59) Sport Impairment Goals Objective Phalen?s test (+) Measurements Carpal Compression test (+) Tinel?s sign (-) [though pt stating symptoms seem present at all times, not necessarily correlated to tapping wrist] Brake Press Operator (in pounds) RIGHT: Brake Press Operator: - Avg 29.3lb 3 jaw sasha: - Avg 8.3lb Lateral: 11/06/09 - Avg 8.3lb LEFT: Brake Press Operator: - Avg 25.7lb 3 jaw sasha - Avg 6.7lb Lateral: 05/08/12 - Avg 10.7lb Treatment The patient participated in her initial OT session for management of left wrist and hand pain related to known carpal tunnel syndrome and arthritis. Manual testing today revealed reduced welder production line gas and pinch strength bilaterally, with left hand performance slightly weaker in most trials. Special testing was notable for negative Tinel?s sign but positive Phalen?s and carpal compression tests. Education was provided on increasing use of her wrist cock-up orthosis to daytime as tolerated, and kinesiotape was applied to the left wrist/hand to provide additional support during tasks when brace wear is impractical, particularly with wet or repetitive hand use. Instruction was initiated in a home exercise program including tendon glides and gentle wrist flexion/extension, though full teaching and reinforcement will be needed in subsequent sessions . Patient was also educated on joint protection and task modification strategies, including offloading weight-bearing tasks to the forearm rather than the hand. She demonstrated fair to good understanding of education provided, though ongoing reinforcement and graded practice will be required. Short Term Goals Within 6 weeks: 1. Patient will demonstrate independence with tendon glide and gentle wrist ROM home exercise program, performing correctly 5/7 days per week, as evidenced by return demonstration and patient report. 2. Patient will increase left welder production line gas strength by at least 3 lbs (to =29 lbs average) to support improved tolerance for light household tasks such as carrying lightweight kitchen items. 3. Patient will report a 25% reduction in nocturnal pain episodes disrupting sleep, with use of wrist orthosis and activity modification strategies. 4. Patient will demonstrate ability to use joint protection strategies and task modification techniques during at least 3 identified kitchen or household activities, with minimal verbal cueing. Retirement Goals Within 12 weeks: 1. Patient will increase left welder production line gas strength by at least 5 lbs (to =31 lbs average) and maintain improved strength without increased pain during functional tasks . 2. Patient will report ability to complete a full baking task (mixing, lifting light pans, manipulating utensils) with no more than mild discomfort and without requiring prolonged rest breaks. 3. Patient will demonstrate independence in use of adaptive equipment, splinting, thermal modalities or taping strategies as appropriate to manage symptoms during both day and night activities. 4. Patient will report pain reduction to =3/10 on the numeric pain scale during daily functional tasks when lifting or gripping, allowing consistent participation in valued IADLs. Assessment/Plan Patient Response Good Rehabilitation Good Potential Impairments ADLs,Coordination/Dexterity,Flexibility,Functional Identified Activities,Pain,Weakness,Range of Motion,Recreational Activities,Meaningful Activities,Stiffness,Soft Tissue Mobility Treatment Assessment 74-year-old right-hand dominant female presenting with chronic left wrist and hand pain in the context of known carpal tunnel syndrome and arthritis. Symptoms are reported as persistent and at times nocturnal, interfering with sleep despite use of a night orthosis. She reports frequent pain and functional difficulty with baking and kitchen activities, particularly when lifting, carrying, or manipulating weighted objects, containers, and dishes. Objective testing reveals reduced bilateral welder production line gas and pinch strength with slightly greater impairment on the left, positive Phalen?s and carpal compression tests, and pain provoked by weighted functional tasks. The patient demonstrates functional limitations in meal preparation, household management, and sustained welder production line gas/ carry tasks, all of which impact her independence and quality of life. Skilled OT is indicated to address pain management, functional task modification, strengthening and mobility exercises, orthotic and adaptive equipment training, and patient education for joint protection and symptom management. Therapy goals will focus on reducing pain during daily activities, improving tolerance for functional use of the left hand, and reinforcing strategies that promote safe task performance and joint protection. Reviewed with Goals,Progress Being Made,Home Exercise Program Patient Patient Good Understanding Length of treatment 12 (weeks) Plan of Care Start 03/09/25 Date Plan of Care End 06/01/25 Date Comment 1-2x/week PRN Treatment Frequency Twice a Week Treatment Duration 45 Minutes Therapeutic Contents Active Range of Motion,Adaptive Equipment Education, Client Education,Functional Activities,Home Exercise Program,Joint Protection,Education,Self-Care,Stretching /Flexibility Activities,Therapeutic Activities, Therapeutic Exercises,Modalities Modalities As Needed Types of Modalities Ice Massage,Other Additional Types of MHP, paraffin Modalities Patient Instruction Home Exercise Program,Plan of Care,Questions/Concerns Patient Continue with Current Program Recommendations
--- NOTE | 2025-03-09 15:02 | OT.OPPOC ---
Physical, Occupational & Speech Therapy At [facility] Reji Martinez [id number] 1950 Visit Care Team Role Provider Type Yanet Juares PA-C Family Provider Non-Staff Primary Care Provider Address: [address] [place] [address], [place], [address] Gilbert Holguin PA-C Attending Provider Non-Staff Referring Provider Address: [address] [place], [place] [address]monty Garcia, [place], [address] Occupational Therapy Plan of Care OT Outpatient Adult Evaluation Start: 03/08/25 10:16 Freq: Status: Active Protocol: Document 03/09/25 09:45 (Rec: 03/08/25 10:21 [id number]) General Information - Adult Visit Information Visit Number Plan of Care Dates 03/09/25-06/01/25 Insurance no pre-auth;no copay;KX modifier required after 19 OT Information visits pcy Session Time Visit Start Date 03/09/25 Visit Start Time 09:45 Visit Stop Time 10:30 Setting Treatment Setting Outpatient Care Visit Type Note Type Initial Evaluation Referral Referring Physician Dr. Gilbert Talley Reason for Referral L wrist sprain Identification Identification Yes Confirmed Identification EMR Confirmed By Social Information Social History It just kind of always hurts but I am able to push through it so I have put therapy off a bit too long probably Patient Questionnaires Quick Dash- Upper Extremity Quick Dash UE Score 40.9 Quick Dash UE 40 to 59% Impaired (Score 40-59) Impairment Quick Dash- Work and Sports Modules Quick Dash W&S Score W: 50; S: 50 Quick Dash Work and 40 to 59% Impaired (Score 40-59) Sport Impairment Goals Objective Measurements Objective Phalen?s test (+) Measurements Carpal Compression test (+) Tinel?s sign (-) [though pt stating symptoms seem present at all times, not necessarily correlated to tapping wrist] Rd Mechanical Engineer (in pounds) RIGHT: Rd Mechanical Engineer: - Avg 29.3lb 3 jaw sasha: - Avg 8.3lb Lateral: 11/06/09 - Avg 8.3lb LEFT: Rd Mechanical Engineer: - Avg 25.7lb 3 jaw sasha - Avg 6.7lb Lateral: 05/08/12 - Avg 10.7lb Treatment Treatment The patient participated in her initial OT session for management of left wrist and hand pain related to known carpal tunnel syndrome and arthritis. Manual testing today revealed reduced helper teacher and pinch strength bilaterally, with left hand performance slightly weaker in most trials. Special testing was notable for negative Tinel?s sign but positive Phalen?s and carpal compression tests. Education was provided on increasing use of her wrist cock-up orthosis to daytime as tolerated, and kinesiotape was applied to the left wrist/hand to provide additional support during tasks when brace wear is impractical, particularly with wet or repetitive hand use. Instruction was initiated in a home exercise program including tendon glides and gentle wrist flexion/extension, though full teaching and reinforcement will be needed in subsequent sessions . Patient was also educated on joint protection and task modification strategies, including offloading weight-bearing tasks to the forearm rather than the hand. She demonstrated fair to good understanding of education provided, though ongoing reinforcement and graded practice will be required. Short Term Goals Short Term Goals Within 6 weeks: 1. Patient will demonstrate independence with tendon glide and gentle wrist ROM home exercise program, performing correctly 5/7 days per week, as evidenced by return demonstration and patient report. 2. Patient will increase left helper teacher strength by at least 3 lbs (to =29 lbs average) to support improved tolerance for light household tasks such as carrying lightweight kitchen items. 3. Patient will report a 25% reduction in nocturnal pain episodes disrupting sleep, with use of wrist orthosis and activity modification strategies. 4. Patient will demonstrate ability to use joint protection strategies and task modification techniques during at least 3 identified kitchen or household activities, with minimal verbal cueing. Jail Goals Air Chief Marshal Goals Within 12 weeks: 1. Patient will increase left helper teacher strength by at least 5 lbs (to =31 lbs average) and maintain improved strength without increased pain during functional tasks . 2. Patient will report ability to complete a full baking task (mixing, lifting light pans, manipulating utensils) with no more than mild discomfort and without requiring prolonged rest breaks. 3. Patient will demonstrate independence in use of adaptive equipment, splinting, thermal modalities or taping strategies as appropriate to manage symptoms during both day and night activities. 4. Patient will report pain reduction to =3/10 on the numeric pain scale during daily functional tasks when lifting or gripping, allowing consistent participation in valued IADLs. Assessment/Plan Assessment Patient Response Good Rehabilitation Good Potential Impairments ADLs,Coordination/Dexterity,Flexibility,Functional Identified Activities,Pain,Weakness,Range of Motion,Recreational Activities,Meaningful Activities,Stiffness,Soft Tissue Mobility Treatment Assessment 74-year-old right-hand dominant female presenting with chronic left wrist and hand pain in the context of known carpal tunnel syndrome and arthritis. Symptoms are reported as persistent and at times nocturnal, interfering with sleep despite use of a night orthosis. She reports frequent pain and functional difficulty with baking and kitchen activities, particularly when lifting, carrying, or manipulating weighted objects, containers, and dishes. Objective testing reveals reduced bilateral helper teacher and pinch strength with slightly greater impairment on the left, positive Phalen?s and carpal compression tests, and pain provoked by weighted functional tasks. The patient demonstrates functional limitations in meal preparation, household management, and sustained helper teacher/ carry tasks, all of which impact her independence and quality of life. Skilled OT is indicated to address pain management, functional task modification, strengthening and mobility exercises, orthotic and adaptive equipment training, and patient education for joint protection and symptom management. Therapy goals will focus on reducing pain during daily activities, improving tolerance for functional use of the left hand, and reinforcing strategies that promote safe task performance and joint protection. Reviewed with Goals,Progress Being Made,Home Exercise Program Patient Patient Good Understanding Plan Length of treatment 12 (weeks) Plan of Care Start 03/09/25 Date Plan of Care End 06/01/25 Date Comment 1-2x/week PRN Treatment Frequency Twice a Week Treatment Duration 45 Minutes Therapeutic Contents Active Range of Motion,Adaptive Equipment Education, Client Education,Functional Activities,Home Exercise Program,Joint Protection,Education,Self-Care,Stretching /Flexibility Activities,Therapeutic Activities, Therapeutic Exercises,Modalities Modalities As Needed Types of Modalities Ice Massage,Other Additional Types of MHP, paraffin Modalities Patient Instruction Home Exercise Program,Plan of Care,Questions/Concerns Patient Continue with Current Program Recommendations Electronically Signed by: Jenifer Alcantar OT 03/09/25 [id number] If you are in agreement with this Plan of Care, please return a signed and dated copy. I have reviewed this Plan of Care and certify that the skilled therapy services above are required to meet the patient?s needs. Physician Signature Date Printed Name and Credentials Clinical Instructor Signature Printed Name and Credentials
--- NOTE | 2025-03-16 14:17 | OT.OP.TRT ---
Visit Care Team Role Provider Type Yanet Juares PA-C Family Provider Non-Staff Primary Care Provider Specialty: Medical Address: [address] [facility], [place], [address] Email: Gilbert Holguin PA-C Attending Provider Non-Staff Referring Provider Specialty: Medical Address: [address] [place] [address] , [place], [address] Email: Occupational Therapy Treatment Note OT Outpatient Treatment Note - Adult Start: 03/08/25 10:16 Freq: Status: Active Protocol: Document 03/16/25 10:48 BILLY (Rec: 03/16/25 09:04 BILLY [id number]) OT Outpatient Adult Treatment Note Session Time Visit Start Date 03/16/25 Visit Start Time 10:48 Visit Stop Time 11:32 Visit Information Visit Number 2 of 24 Plan of Care Dates 03/09/25-06/01/25 Insurance no pre-auth; no copay; KX modifier required after 19 OT Information visits pcy Setting Treatment Setting Outpatient Care Visit Type Note Type Treatment Note - Subjective Identification Type Name Identification Medical Record Reconciled With Observations Pt reports that her symptoms are more localized. She reports that previously she had numbness from her shoulder to her fingertips, but that now it begins at her wrist and extends to her fingertips with digits 2-4 being most impacted. Pt states that she had not performed her HEP because she was concerned that she may not do them correctly and may make things worse. Pt denied pain during tx. - Objective Short Term Goals Within 6 weeks: 1. Patient will demonstrate independence with tendon glide and gentle wrist ROM home exercise program, performing correctly 5/7 days per week, as evidenced by return demonstration and patient report. 2. Patient will increase left extended day teacher strength by at least 3 lbs (to =29 lbs average) to support improved tolerance for light household tasks such as carrying lightweight kitchen items. 3. Patient will report a 25% reduction in nocturnal pain episodes disrupting sleep, with use of wrist orthosis and activity modification strategies. 4. Patient will demonstrate ability to use joint protection strategies and task modification techniques during at least 3 identified kitchen or household activities, with minimal verbal cueing. Waste Baler Goals Within 12 weeks: 1. Patient will increase left extended day teacher strength by at least 5 lbs (to =31 lbs average) and maintain improved strength without increased pain during functional tasks . 2. Patient will report ability to complete a full baking task (mixing, lifting light pans, manipulating utensils) with no more than mild discomfort and without requiring prolonged rest breaks. 3. Patient will demonstrate independence in use of adaptive equipment, splinting, thermal modalities or taping strategies as appropriate to manage symptoms during both day and night activities. 4. Patient will report pain reduction to =3/10 on the numeric pain scale during daily functional tasks when lifting or gripping, allowing consistent participation in valued IADLs. - Treatment 2 Descriptor Education: OT discussed activity modification specifically when performing kitchen tasks. Pt is an avid cooker and brantley, she reports that she frequently gets things out of the oven with just her L hand and that she does not keep her wrist in a neutral position when doing so. She also reports using heavy pots and pans. OT demonstrated positioning for keeping her wrist in a neutral position for these tasks as well as for stirring. Pt reports that she is often pushing up with her hands to stand. OT demonstrated using a fisted position to do this while maintaining a neutral wrist. Pt demonstrated with ease. OT suggested that pt pay attention to her positioning with kitchen tasks and to report back to OT next treatment if she has additional concerns. 1 Descriptor Proprioception: -therabar (yellow) wobble x30 seconds -wiffle ball with two marbles wrist circles CW and CCW x30 second each Exercises 3 Descriptor Deckhand Shrimp Boat strengthening: red digi flex 3# x30 2 Descriptor Strengthening: therabar (yellow): -wrist flex x10 -wrist ext x10 1 Descriptor HEP Review: -wrist ext stretch 15 sec hold x5 -wrist flex stretch 15 sec hold x5 -median nerve glide x5 -tendon glides (flat palm, hook fist, full fist) x10 -tendon glides (flat palm, table top, flat fist) x10 - Assessment Patient Response to Good Treatment Rehabilitation Good Potential Impairments ADLs,Coordination/Dexterity,Flexibility,Functional Identified Activities,Pain,Weakness,Range of Motion,Recreational Activities,Meaningful Activities,Stiffness,Soft Tissue Mobility Assessment of Pt is pleasant, cooperative, and appeared eager to Improvement learn how to help herself in conjunction with skilled OT services. Pt required modeling, tc, and vcs to perform HEP exercises correctly. OT will continue to review next treatment to ensure effective carryover. OT discussed the importance of activity modification especially during kitchen tasks, recommending using both hands when possible, off loading to large joints, keeping a neutral wrist, and using larger handled utensils when possible. OT encouraged pt to pay attention to her positioning and to bring any areas of concern to the next treatment session. Pt verbalized understanding. Pt expressed concern for her R wrist when helping herself transition from sit>stand as pt used an open palm to push up from surface. OT recommended using a full fist position with neutral wrist. Pt verbalizes understanding and demonstrates well. Pt tolerated gentle strengthening with flex bar and initiation of proprioceptive exercises. Pt continues to be appropriate for skilled OT services to address functional limitations, pain, activity modification, strengthening, joint protection, and patient education. Cont per POC. Home Exercise wrist ext stretch, wrist flex stretch, median nerve Program glide, tendon glides (flat palm, hook fist, full fist), tendon glides (flat palm, table top, flat fist) Reviewed with Goals,Progress Being Made,Home Exercise Program Patient/Caregiver Patient/Caregiver Good Understanding - Plan Therapy Continue with Current Program Recommendations Amount of Therapy 2-3 Months Recommended Comment 1-2/week PRN Frequency of Twice a Week Treatment Length of Session 45 Minutes Therapeutic Contents Active Range of Motion,Adaptive Equipment Education, Client Education,Functional Activities,Home Exercise Program,Joint Protection,Education,Self-Care,Stretching /Flexibility Activities,Therapeutic Activities, Therapeutic Exercises,Modalities Modalities As Needed Types of Modalities Ice Massage,Other Additional Types of MHP, paraffin Modalities
--- NOTE | 2025-03-22 09:22 | OT.OP.TRT ---
Visit Care Team Role Provider Type Yanet Juares PA-C Family Provider Non-Staff Primary Care Provider Specialty: Medical Address: [address] [facility] [place], [address] Email: Gilbert Holguin PA-C Attending Provider Non-Staff Referring Provider Specialty: Medical Address: [address] [place], [place] [address], [place], [address] Email: Occupational Therapy Treatment Note OT Outpatient Treatment Note - Adult Start: 03/08/25 10:16 Freq: Status: Active Protocol: Document 03/22/25 08:20 BILLY (Rec: 03/22/25 07:18 [email or web address] [id number]) OT Outpatient Adult Treatment Note Session Time Visit Start Date 03/22/25 Visit Start Time 08:20 Visit Stop Time 09:00 Visit Information Visit Number 3 of 24 Plan of Care Dates 03/09/25-06/01/25 Insurance no pre-auth; no copay; KX modifier required after 19 OT Information visits pcy Setting Treatment Setting Outpatient Care Visit Type Note Type Treatment Note - Subjective Identification Type Name Identification Medical Record Reconciled With Observations Pt reports that she took a out a heavy 9x13 cee from the oven on Friday. She said she had immediate discomfort in her palm and forearm I could tell I overdid it. Pt reports that it feels somewhat improved today. I like it with the tape on it feels like it has more support. Patient/Caregiver Fair Compliance with Home Exercise Program - - Treatment 3 Descriptor Kinesio tape applied. 8 I strip placed with tape off at ulnar aspect of wrist crease with ~75% on the palm in tape of position. Strip was continued with 50% stretch along dorsum of the wrist continuing to the thenar eminence and stopping with tape off at dorsal aspect of the webspace. 2 Descriptor Education: OT re-educated on activity modification specifically when performing kitchen tasks. OT recommends wearing her splint during cooking tasks. Pt is concerned about being able to wear her kitchen gloves with it, OT recommends buying an oversized pair of gloves. OT recommends using an underhand jukebox route driver with oven bakeware. When moving heavy pots to the sink, OT encourages pt to lift and move the pot to a trivet on the counter and then slide the pot to the sink. OT demonstrated the positioning recommended for each of these and stressed the importance of keeping her wrist in a neutral position for these tasks. 1 Descriptor Proprioception: -therabar (yellow) wobble x30 seconds -wiffle ball with two marbles wrist circles CW and CCW x30 second each Visual Cues Min Cues Exercises 3 Descriptor Professor Of Exercise Science strengthening: red digi flex 3# x30 pink tputty: -gentle jukebox route driver squeezes -extension rolls -alternating tip pinches -digit extension loop -thumb extension Side Left Visual Cues Min Cues Verbal Cues Min Cues 2 Descriptor Strengthening: therabar (yellow): -wrist flex x10 -wrist ext x10 Side Left Visual Cues Min Cues Verbal Cues Min Cues 1 Descriptor HEP Review: -wrist ext stretch 15 sec hold x5 -wrist flex stretch 15 sec hold x5 -median nerve glide x5 -tendon glides (flat palm, hook fist, full fist) x10 -tendon glides (flat palm, table top, flat fist) x10 Side Left Physical Assistance Min Assistance Visual Cues Mod Cues Verbal Cues Mod Cues - Assessment Patient Response to Good Treatment Rehabilitation Good Potential Impairments ADLs,Coordination/Dexterity,Flexibility,Functional Identified Activities,Pain,Weakness,Range of Motion,Recreational Activities,Meaningful Activities,Stiffness,Soft Tissue Mobility Assessment of Pt reports that she has been performing her HEP Improvement regularly and did not have questions concerning this; however, upon review of her HEP, pt required heavy vc/ tc and demonstration to perform each of these correctly . Continued review for pts safe and I performance of HEP is necessary. OT re-educated on importance of activity modification especially during kitchen tasks, recommending using both hands when possible, off loading to large joints, keeping a neutral wrist, and specific modifications for heavy pot use. OT recommends wearing her splint during these tasks as well. Pt verbalized understanding. Pt tolerated gentle strengthening with flex bar, proprioceptive exercises, and gentle jukebox route driver strengthening with pink tputty today. OT issued pt tputty, but instructed to perform ~5 minutes of gripping daily. OT instructed pt to concentrate on performing her other HEPs correctly before issuing specific jukebox route driver strengthening tasks to be performed at home. Pt encouraged to bring putty back to future treatment session for use in clinic. Pt reports that she can tell an improvement in feeling supported with kinesio tape in place. OT discussed wearing schedule and appropriate removal technique. Pt continues to be appropriate for skilled OT services to address functional limitations, pain, activity modification, strengthening, joint protection, and patient education. Cont per POC. Home Exercise wrist ext stretch, wrist flex stretch, median nerve Program glide, tendon glides (flat palm, hook fist, full fist), tendon glides (flat palm, table top, flat fist) -tputty pink jukebox route driver x5 minutes daily Reviewed with Goals,Progress Being Made,Home Exercise Program Patient/Caregiver Patient/Caregiver Good Understanding - Plan Therapy Continue with Current Program Recommendations Amount of Therapy 2-3 Months Recommended Comment 1-2/week PRN Frequency of Twice a Week Treatment Length of Session 45 Minutes Therapeutic Contents Active Range of Motion,Adaptive Equipment Education, Client Education,Functional Activities,Home Exercise Program,Joint Protection,Education,Self-Care,Stretching /Flexibility Activities,Therapeutic Activities, Therapeutic Exercises,Modalities Modalities As Needed Types of Modalities Ice Massage,Other Additional Types of MHP, paraffin Modalities
--- NOTE | 2025-03-31 09:20 | OT.OP.TRT ---
Visit Care Team Role Provider Type Yanet Juares PA-C Family Provider Non-Staff Primary Care Provider Specialty: Medical Address: [address] [facility], [address], [place], [address] Email: Gilbert Holguin PA-C Attending Provider Non-Staff Referring Provider Specialty: Medical Address: [address] [place] [address], [place], [address] Email: Occupational Therapy Treatment Note OT Outpatient Treatment Note - Adult Start: 03/08/25 10:16 Freq: Status: Active Protocol: Document 03/31/25 08:15 (Rec: 03/31/25 08:16 [id number]) OT Outpatient Adult Treatment Note Session Time Visit Start Date 03/31/25 Visit Start Time 08:15 Visit Stop Time 09:00 Visit Information Visit Number 4 of 24 Plan of Care Dates 03/09/25-06/01/25 Insurance no pre-auth; no copay; KX modifier required after 19 OT Information visits pcy Setting Treatment Setting Outpatient Care Visit Type Note Type Treatment Note - Subjective Identification Type Name Identification Medical Record Reconciled With Observations It will feel better for a few days but then I will do something that grabs it again Patient/Caregiver Fair Compliance with Home Exercise Program - Objective Short Term Goals Within 6 weeks: 1. Patient will demonstrate independence with tendon glide and gentle wrist ROM home exercise program, performing correctly 5/7 days per week, as evidenced by return demonstration and patient report. 2. Patient will increase left lithograph press operator strength by at least 3 lbs (to =29 lbs average) to support improved tolerance for light household tasks such as carrying lightweight kitchen items. 3. Patient will report a 25% reduction in nocturnal pain episodes disrupting sleep, with use of wrist orthosis and activity modification strategies. 4. Patient will demonstrate ability to use joint protection strategies and task modification techniques during at least 3 identified kitchen or household activities, with minimal verbal cueing. Detention Goals Within 12 weeks: 1. Patient will increase left lithograph press operator strength by at least 5 lbs (to =31 lbs average) and maintain improved strength without increased pain during functional tasks . 2. Patient will report ability to complete a full baking task (mixing, lifting light pans, manipulating utensils) with no more than mild discomfort and without requiring prolonged rest breaks. 3. Patient will demonstrate independence in use of adaptive equipment, splinting, thermal modalities or taping strategies as appropriate to manage symptoms during both day and night activities. 4. Patient will report pain reduction to =3/10 on the numeric pain scale during daily functional tasks when lifting or gripping, allowing consistent participation in valued IADLs. - Treatment 4 Descriptor Patient was provided education on the use of thermal modalities for symptom management, including instruction in ice massage and heat, with discussion of the purposes and expected benefits of each. Education was provided on adaptive equipment for meal preparation , including use of vegetable choppers/food processors, rocker knives or pizza cutters, built-up handles, and foam tubing. Strategies for task modification were discussed, including using pre-prepped ingredients, delegating chopping or lifting tasks to a family member , and selecting simplified recipes such as crockpot or one-cee meals to reduce repetitive strain by minimizing prep and lifting. Patient was further educated on use of external cues such as a bulky ring, bracelet, or visual reminder in the kitchen such as a post it note on the oven to encourage mindful lifting and reduce ? auto agricultural pilot? movements that often aggravate her wrist symptoms. Patient verbalized understanding of the education and demonstrated good engagement in problem- solving strategies relevant to her daily cooking routines and was eager to look into recommendations discussed. Exercises 3 Descriptor Movable Bulkhead Installer strengthening: red digi flex 3# x30 pink tputty: -gentle lithograph press operator squeezes -extension rolls -alternating tip pinches -digit extension loop -thumb extension Side Left Visual Cues Min Cues Verbal Cues Min Cues 2 Descriptor Strengthening: therabar (yellow): -wrist flex x10 -wrist ext x10 Side Left Visual Cues Min Cues Verbal Cues Min Cues - Assessment Patient Response to Good Treatment Rehabilitation Good Potential Impairments ADLs,Coordination/Dexterity,Flexibility,Functional Identified Activities,Pain,Weakness,Range of Motion,Recreational Activities,Meaningful Activities,Stiffness,Soft Tissue Mobility Assessment of Patient continues to present with persistent left wrist Improvement irritation consistent with carpal tunnel syndrome and arthritis, with symptoms exacerbated during high-demand kitchen and cooking tasks. While she has demonstrated fair tolerance and good compliance with her home exercise program, she continues to have difficulty with orthosis wear during meal preparation and reports practical limitations with kinesiotaping. Today?s session emphasized joint protection, thermal pain management strategies, and functional adaptations to support participation in valued roles. Patient demonstrated insight into her tendency to aggravate symptoms during routine activities when not actively monitoring her movements, and collaboratively identified use of visual cues as a compensatory strategy. She is progressing in her understanding and application of activity modification and continues to benefit from skilled OT for reinforcement of adaptive strategies, symptom management, and progression of strengthening within tolerance to improve her ability to participate in cooking and daily activities with less pain. Home Exercise wrist ext stretch, wrist flex stretch, median nerve Program glide, tendon glides (flat palm, hook fist, full fist), tendon glides (flat palm, table top, flat fist) -tputty pink lithograph press operator x5 minutes daily Reviewed with Goals,Progress Being Made,Home Exercise Program Patient/Caregiver Patient/Caregiver Good Understanding - Plan Therapy Continue with Current Program Recommendations Amount of Therapy 2-3 Months Recommended Comment 1-2/week PRN Frequency of Twice a Week Treatment Length of Session 45 Minutes Therapeutic Contents Active Range of Motion,Adaptive Equipment Education, Client Education,Functional Activities,Home Exercise Program,Joint Protection,Education,Self-Care,Stretching /Flexibility Activities,Therapeutic Activities, Therapeutic Exercises,Modalities Modalities As Needed Types of Modalities Ice Massage,Other Additional Types of MHP, paraffin Modalities
--- NOTE | 2025-04-06 10:18 | OT.OPPN ---
Current Diagnoses Strain of unspecified muscle, fascia and tendon at wrist and hand level, left hand, initial encounter (04/06/25) OT Progress Note OT Outpatient Treatment Note - Adult Start: 03/08/25 10:16 Freq: Status: Active Protocol: Document 04/06/25 08:15 (Rec: 04/05/25 13:59 [id number]) OT Outpatient Adult Treatment Note Session Time Visit Start Date 04/06/25 Visit Start Time 08:15 Visit Stop Time 09:00 Visit Information Visit Number 5 of 24 Plan of Care Dates 03/09/25-06/01/25 Insurance no pre-auth; no copay; KX modifier required after 19 OT Information visits pcy Setting Treatment Setting Outpatient Care Visit Type Note Type Progress Note - Subjective Identification Type Name Identification Medical Record Reconciled With Observations I just don't know if this will ever really get better since I am on Avastin Patient/Caregiver Fair Compliance with Home Exercise Program - Objective Short Term Goals Within 6 weeks: 1. Patient will demonstrate independence with tendon glide and gentle wrist ROM home exercise program, performing correctly 5/7 days per week, as evidenced by return demonstration and patient report. [PROGRESSING 04/06/25] 2. Patient will increase left lab courier strength by at least 3 lbs (to =29 lbs average) to support improved tolerance for light household tasks such as carrying lightweight kitchen items. [PROGRESSING 04/06/25] 3. Patient will report a 25% reduction in nocturnal pain episodes disrupting sleep, with use of wrist orthosis and activity modification strategies. [ PROGRESSING 04/06/25] 4. Patient will demonstrate ability to use joint protection strategies and task modification techniques during at least 3 identified kitchen or household activities, with minimal verbal cueing. [MET 04/06/25] Longterm Goals Within 12 weeks: 1. Patient will increase left lab courier strength by at least 5 lbs (to =31 lbs average) and maintain improved strength without increased pain during functional tasks . [PROGRESSING 04/06/25] 2. Patient will report ability to complete a full baking task (mixing, lifting light pans, manipulating utensils) with no more than mild discomfort and without requiring prolonged rest breaks. [PROGRESSING 04/06/25] 3. Patient will demonstrate independence in use of adaptive equipment, splinting, thermal modalities or taping strategies as appropriate to manage symptoms during both day and night activities. [PROGRESSING 04/06] 4. Patient will report pain reduction to =3/10 on the numeric pain scale during daily functional tasks when lifting or gripping, allowing consistent participation in valued IADLs. 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 Pt participated in discussion focused on the ongoing management of chronic left wrist pain in the context of arthritis, carpal tunnel syndrome, and Avastin-related joint and tendon sensitivity. The session centered on the patient?s expressed concerns regarding the long-term management of her symptoms and the realistic potential for improvement given her medication-related risks. Education was reinforced regarding the purpose of continued occupational therapy, emphasizing the benefits of progressive activity modification, ongoing review and adjustment of her home exercise program, and guided implementation of adaptive strategies to minimize overuse. The patient verbalized understanding that therapy serves to support maintenance of function, prevention of flare-ups, and maximization of pain-free participation in meaningful activities through guided adaptation and education, even in the presence of chronic underlying conditions. Discussion also included the importance of pacing, joint protection, and early symptom monitoring. The patient reported continued effort to reduce activity strain and to trial adaptive equipment previously recommended, though acknowledged ongoing difficulty maintaining full compliance with rest and brace wear due to her high functional demands and cooking habits. She was encouraged to continue following up with her orthopedic physician for collaborative input on prognosis and medical management . 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 She reports subjective improvement in symptoms when able to adhere to rest and bracing recommendations, though notes that even gentle home exercise program activities occasionally increase irritation. Despite these challenges, she remains engaged, insightful, and motivated to manage symptoms conservatively through education and adaptation. The patient is appropriately concerned about the long-term prognosis of her wrist given her oncologic medication regimen, which may limit tissue recovery and contribute to persistent joint sensitivity. Ongoing skilled occupational therapy remains indicated to support symptom monitoring, activity modification, graded strengthening as tolerated, and problem-solving of adaptive equipment and environmental strategies to maintain safe and pain- free engagement in cooking and daily tasks. Continued interdisciplinary communication with her orthopedic and oncology providers is recommended to guide long-term expectations and adjust care as needed. Home Exercise wrist ext stretch, wrist flex stretch, median nerve Program glide, tendon glides (flat palm, hook fist, full fist), tendon glides (flat palm, table top, flat fist) -tputty pink lab courier x5 minutes daily Reviewed with Goals,Progress Being Made,Home Exercise Program Patient/Caregiver Patient/Caregiver Good Understanding - Plan Therapy Continue with Current Program Recommendations Amount of Therapy 2-3 Months Recommended Comment 1-2/week PRN Frequency of Twice a Week Treatment Length of Session 45 Minutes Therapeutic Contents Active Range of Motion,Adaptive Equipment Education, Client Education,Functional Activities,Home Exercise Program,Joint Protection,Education,Self-Care,Stretching /Flexibility Activities,Therapeutic Activities, Therapeutic Exercises,Modalities Modalities As Needed Types of Modalities Ice Massage,Other Additional Types of MHP, paraffin Modalities If you are in agreement with this Plan of Care, please return a signed and dated copy. I have reviewed this Plan of Care and certify that the skilled therapy services above are required to meet the patient?s needs. Physician Signature Date Printed Name and Credentials Clinical Instructor Signature Printed Name and Credentials
--- NOTE | 2025-04-13 09:24 | OT.OP.DC ---
Visit Care Team Role Provider Type Yanet Juares PA-C Family Provider Non-Staff Primary Care Provider Address: [address] [place] [address], [address], [place], [address] Email: Gilbert Holguin PA-C Attending Provider Non-Staff Referring Provider Address: [address] [place] [address], [place], [address] Email: OT Outpatient OT Outpatient Adult Evaluation Start: 03/08/25 10:16 Freq: Status: Active Protocol: Document 03/09/25 09:45 (Rec: 03/08/25 10:21 [id number]) General Information - Adult Visit Information Visit Number 1 of 24 Plan of Care Dates 03/09/25-06/01/25 Insurance no pre-auth;no copay;KX modifier required after 19 OT Information visits pcy Session Time Visit Start Date 03/09/25 Visit Start Time 09:45 Visit Stop Time 10:30 Setting Treatment Setting Outpatient Care Visit Type Note Type Initial Evaluation Referral Referring Physician Dr. Gilbert Talley Reason for Referral L wrist sprain Identification Identification Yes Confirmed Identification EMR Confirmed By Social Information Social History It just kind of always hurts but I am able to push through it so I have put therapy off a bit too long probably Patient Questionnaires Quick Dash- Upper Extremity Quick Dash UE Score 40.9 Quick Dash UE 40 to 59% Impaired (Score 40-59) Impairment Quick Dash- Work and Sports Modules Quick Dash W&S Score W: 50; S: 50 Quick Dash Work and 40 to 59% Impaired (Score 40-59) Sport Impairment Goals Objective Measurements Objective Phalen?s test (+) Measurements Carpal Compression test (+) Tinel?s sign (-) [though pt stating symptoms seem present at all times, not necessarily correlated to tapping wrist] Senior Policy Analyst (in pounds) RIGHT: Senior Policy Analyst: - Avg 29.3lb 3 jaw sasha: - Avg 8.3lb Lateral: 11/06/09 - Avg 8.3lb LEFT: Senior Policy Analyst: - Avg 25.7lb 3 jaw sasha - Avg 6.7lb Lateral: 05/08/12 - Avg 10.7lb Treatment Treatment The patient participated in her initial OT session for management of left wrist and hand pain related to known carpal tunnel syndrome and arthritis. Manual testing today revealed reduced mental health program manager and pinch strength bilaterally, with left hand performance slightly weaker in most trials. Special testing was notable for negative Tinel?s sign but positive Phalen?s and carpal compression tests. Education was provided on increasing use of her wrist cock-up orthosis to daytime as tolerated, and kinesiotape was applied to the left wrist/hand to provide additional support during tasks when brace wear is impractical, particularly with wet or repetitive hand use. Instruction was initiated in a home exercise program including tendon glides and gentle wrist flexion/extension, though full teaching and reinforcement will be needed in subsequent sessions . Patient was also educated on joint protection and task modification strategies, including offloading weight-bearing tasks to the forearm rather than the hand. She demonstrated fair to good understanding of education provided, though ongoing reinforcement and graded practice will be required. Short Term Goals Short Term Goals Within 6 weeks: 1. Patient will demonstrate independence with tendon glide and gentle wrist ROM home exercise program, performing correctly 5/7 days per week, as evidenced by return demonstration and patient report. 2. Patient will increase left mental health program manager strength by at least 3 lbs (to =29 lbs average) to support improved tolerance for light household tasks such as carrying lightweight kitchen items. 3. Patient will report a 25% reduction in nocturnal pain episodes disrupting sleep, with use of wrist orthosis and activity modification strategies. 4. Patient will demonstrate ability to use joint protection strategies and task modification techniques during at least 3 identified kitchen or household activities, with minimal verbal cueing. Prison Goals Prison Goals Within 12 weeks: 1. Patient will increase left mental health program manager strength by at least 5 lbs (to =31 lbs average) and maintain improved strength without increased pain during functional tasks . 2. Patient will report ability to complete a full baking task (mixing, lifting light pans, manipulating utensils) with no more than mild discomfort and without requiring prolonged rest breaks. 3. Patient will demonstrate independence in use of adaptive equipment, splinting, thermal modalities or taping strategies as appropriate to manage symptoms during both day and night activities. 4. Patient will report pain reduction to =3/10 on the numeric pain scale during daily functional tasks when lifting or gripping, allowing consistent participation in valued IADLs. Assessment/Plan Assessment Patient Response Good Rehabilitation Good Potential Impairments ADLs,Coordination/Dexterity,Flexibility,Functional Identified Activities,Pain,Weakness,Range of Motion,Recreational Activities,Meaningful Activities,Stiffness,Soft Tissue Mobility Treatment Assessment 74-year-old right-hand dominant female presenting with chronic left wrist and hand pain in the context of known carpal tunnel syndrome and arthritis. Symptoms are reported as persistent and at times nocturnal, interfering with sleep despite use of a night orthosis. She reports frequent pain and functional difficulty with baking and kitchen activities, particularly when lifting, carrying, or manipulating weighted objects, containers, and dishes. Objective testing reveals reduced bilateral mental health program manager and pinch strength with slightly greater impairment on the left, positive Phalen?s and carpal compression tests, and pain provoked by weighted functional tasks. The patient demonstrates functional limitations in meal preparation, household management, and sustained mental health program manager/ carry tasks, all of which impact her independence and quality of life. Skilled OT is indicated to address pain management, functional task modification, strengthening and mobility exercises, orthotic and adaptive equipment training, and patient education for joint protection and symptom management. Therapy goals will focus on reducing pain during daily activities, improving tolerance for functional use of the left hand, and reinforcing strategies that promote safe task performance and joint protection. Reviewed with Goals,Progress Being Made,Home Exercise Program Patient Patient Good Understanding Plan Length of treatment 12 (weeks) Plan of Care Start 03/09/25 Date Plan of Care End 06/01/25 Date Comment 1-2x/week PRN Treatment Frequency Twice a Week Treatment Duration 45 Minutes Therapeutic Contents Active Range of Motion,Adaptive Equipment Education, Client Education,Functional Activities,Home Exercise Program,Joint Protection,Education,Self-Care,Stretching /Flexibility Activities,Therapeutic Activities, Therapeutic Exercises,Modalities Modalities As Needed Types of Modalities Ice Massage,Other Additional Types of MHP, paraffin Modalities Patient Instruction Home Exercise Program,Plan of Care,Questions/Concerns Patient Continue with Current Program Recommendations Functional Wrist/Hand Scan Hand Side Sensory Assessment Sensory Profile2 OT Outpatient Treatment Note - Adult Start: 03/08/25 10:16 Freq: Status: Active Protocol: Document 04/13/25 08:15 (Rec: 04/07/25 14:27 [id number]) OT Outpatient Adult Treatment Note Session Time Visit Start Date 04/13/25 Visit Start Time 08:15 Visit Stop Time 09:00 Visit Information Visit Number 6 of 24 Plan of Care Dates 03/09/25-06/01/25 Insurance no pre-auth; no copay; KX modifier required after 19 OT Information visits pcy Setting Treatment Setting Outpatient Care Visit Type Note Type Discharge Summary - Subjective Identification Type Name Identification Medical Record Reconciled With Observations I hardly used it all the last couple of days and it has been doing great, but I know it will be aggravated again soon Patient/Caregiver Fair Compliance with Home Exercise Program - Objective Objective Senior Policy Analyst/pinch strength testing deferred per patient Measurements request. Short Term Goals Within 6 weeks: 1. Patient will demonstrate independence with tendon glide and gentle wrist ROM home exercise program, performing correctly 5/7 days per week, as evidenced by return demonstration and patient report. [MET 04/13/25 ] 2. Patient will increase left mental health program manager strength by at least 3 lbs (to =29 lbs average) to support improved tolerance for light household tasks such as carrying lightweight kitchen items. [NOT MET - testing deferred per patient request due to pain - 04/13/25] 3. Patient will report a 25% reduction in nocturnal pain episodes disrupting sleep, with use of wrist orthosis and activity modification strategies. [MET ] 4. Patient will demonstrate ability to use joint protection strategies and task modification techniques during at least 3 identified kitchen or household activities, with minimal verbal cueing. [MET 04/06/25] Online Merchandising Manager Goals Within 12 weeks: 1. Patient will increase left mental health program manager strength by at least 5 lbs (to =31 lbs average) and maintain improved strength without increased pain during functional tasks . [NOT MET - testing deferred per patient request due to pain - 04/13/25] 2. Patient will report ability to complete a full baking task (mixing, lifting light pans, manipulating utensils) with no more than mild discomfort and without requiring prolonged rest breaks. [MET 04/13/25] 3. Patient will demonstrate independence in use of adaptive equipment, splinting, thermal modalities or taping strategies as appropriate to manage symptoms during both day and night activities. [MET 04/13/25] 4. Patient will report pain reduction to =3/10 on the numeric pain scale during daily functional tasks when lifting or gripping, allowing consistent participation in valued IADLs. [MET 04/13/25] - Treatment 4 Descriptor Patient was seen today for review of her current home exercise program and discussion of continued symptom management strategies for chronic left wrist and hand pain related to carpal tunnel syndrome and arthritis in the context of ongoing Avastin therapy. She reported that her physician agreed with the assessment that, due to the nature of her medication side effects and her difficulty fully resting the wrist, her therapy progress is likely to plateau at this time. Education was provided regarding modification of her HEP to minimize symptom provocation, including reducing repetitions and performing all exercises with extremely slow, gentle movements to maintain mobility without increasing irritation. Functional education focused on identifying household activities that may exacerbate symptoms, such as lifting casserole dishes or glass bakeware, and alternative techniques were discussed, including use of handled trays, built-up java developer, or assistance from family members. The patient demonstrated understanding of all education and continues to use adaptive equipment and thermal modalities effectively to manage symptoms. She requested deferral of strength and pinch testing today due to concern that testing may aggravate her wrist, noting that she has had improved comfort this week with rest and activity modification. - Assessment Patient Response to Good Treatment Rehabilitation Good Potential Impairments ADLs,Coordination/Dexterity,Flexibility,Functional Identified Activities,Pain,Weakness,Range of Motion,Recreational Activities,Meaningful Activities,Stiffness,Soft Tissue Mobility Progress Towards Slow Progress,Appropriate for Discharge Goals Assessment of Plateaued Overall Progress Assessment of 74-year-old right-hand dominant female was referred to Improvement occupational therapy for evaluation and management of chronic left wrist and hand pain in the setting of arthritis, carpal tunnel syndrome, and Avastin-related joint sensitivity. Symptoms included pain, stiffness, and weakness impacting cooking and other household tasks. The patient was educated on the anatomy and physiology underlying her symptoms, joint protection principles, use of orthotic and taping supports, thermal modalities, adaptive equipment, and ergonomic task modification strategies. A gentle home exercise program was developed focusing on tendon glides, controlled wrist motion, and light mental health program manager strengthening. Throughout her course of therapy, the patient has demonstrated good engagement and fair compliance with education and recommendations, reporting improved understanding of her condition and a reduction in pain and irritation when able to rest and follow recommendations. While she continues to experience symptom flares with activity, she notes overall improvement in her ability to manage discomfort and modify tasks to prevent aggravation. Her progress toward goals has been limited primarily by the pharmacologic side effects of her oncologic medication and her inability to rest the hand fully due to daily activity demands. Several goals have been met, including independence with her HEP, improved sleep due to reduced nocturnal pain, and consistent use of adaptive strategies and equipment for cooking and household management. Strength goals were deferred per patient request to avoid symptom exacerbation. Both the patient and her physician agreed that, given the chronic nature of her medication-related side effects and current functional stability, she would benefit from pausing therapy and maintaining her current routine to monitor long-term symptom patterns and effectiveness of current strategies. Patient is being discharged from skilled occupational therapy prior to all goals being met due to anticipated plateau in progress associated with long-term pharmacologic side effects and ongoing lifestyle demands that limit full rest and recovery. The patient has met the majority of her functional goals and demonstrates good understanding and carryover of education and strategies to support continued symptom management. She has been advised to continue her current home exercise program and adaptive techniques independently and to follow up with her physician if symptoms worsen or if she desires to resume therapy for further progression in the future. Home Exercise wrist ext stretch, wrist flex stretch, median nerve Program glide, tendon glides (flat palm, hook fist, full fist), tendon glides (flat palm, table top, flat fist) -tputty pink mental health program manager x5 minutes daily Reviewed with Goals,Progress Being Made,Home Exercise Program Patient/Caregiver Patient/Caregiver Good Understanding - Plan Therapy Discharge to Home Exercise Program Recommendations Amount of Therapy No Further Therapy Recommended Frequency of No Further Therapy Treatment Therapeutic Contents Active Range of Motion,Adaptive Equipment Education, Client Education,Functional Activities,Home Exercise Program,Joint Protection,Education,Self-Care,Stretching /Flexibility Activities,Therapeutic Activities, Therapeutic Exercises,Modalities Modalities As Needed Types of Modalities Ice Massage,Other Additional Types of MHP, paraffin Modalities
== END 2025-04-15 09:38 | disposition home or self-care (01) ==
LOC: OT 08:15
PROVIDERS: Family Provider Physician Assistant; PCP Physician Assistant; Referring Provider Physician Assistant; Visit Provider Physician Assistant
DX: S66.912A Strain of unspecified muscle, fascia and tendon at wrist and hand level, left hand, initial encounter (principal)
CPT/HCPCS: 97110; 97165; 97530